=== PATIENT | female | born 1990 | race Caucasian/White ===

== ENCOUNTER 2016-07-12 04:21 | Emergency (ER) | payer MEDICAID ==
[2016-07-12] MEDS ORDERED: LORAZEPAM INJ 2 MG/1 ML VIAL IM ONE ×2 (04:24)
[2016-07-12] MEDS ORDERED: LORAZEPAM INJ 2 MG/1 ML VIAL ONE (04:25)
[2016-07-12] MEDS ORDERED: HALOPERIDOL LACTATE INJ 5 MG/1 ML VIAL IM ONE (04:45)
[2016-07-12] MEDS ORDERED: HALOPERIDOL LACTATE INJ 5 MG/1 ML VIAL ONE (04:46)
[2016-07-12 05:21] LABS: HEMOGLOBIN 12.4 g/dL (12.0-15.5); HGB HCT DIFFERENCE -0.8; MEAN CORPUSCULAR HEMOGLOBIN 28.5 pg (27.0-33.4); MEAN CORPUSCULAR HGB CONC 32.6 g/dL (32.0-36.0); MEAN CORPUSCULAR VOLUME 87 fl (80-97); RED BLOOD COUNT 4.35 10^6/uL (3.72-5.28); RED CELL DISTRIBUTION WIDTH 15.4 % (11.5-14.0); WHITE BLOOD COUNT 19.4 10^3/uL (4.0-10.5)
[2016-07-12 05:33] LABS: ALANINE AMINOTRANSFERASE 41 U/L (9-52); ALBUMIN 4.8 g/dL (3.5-5.0); ALKALINE PHOSPHATASE 77 U/L (38-126); ANION GAP 17 (5-19); ASPARTATE AMINO TRANSFERASE 78 U/L (14-36); BLOOD UREA NITROGEN 12 mg/dL (7-20); CALCIUM 10.2 mg/dL (8.4-10.2); CARBON DIOXIDE 25 mmol/L (22-30); CHLORIDE 102 mmol/L (98-107); GLUCOSE 63 mg/dL (75-110); POTASSIUM 3.2 mmol/L (3.6-5.0); SODIUM 143.9 mmol/L (137-145); TOTAL PROTEIN 8.4 g/dL (6.3-8.2)
[2016-07-12 05:36] LABS: ALCOHOL < 10 mg/dL (NONE DETECTED)
--- NOTE | 2016-07-12 05:40 | ER Document Report ---
ED General <FESTUS FISCHER - Last Filed: 07/12/16 12:21> - General TRAVEL OUTSIDE OF THE [place] IN LAST 30 DAYS: No <CHUYITA CARBAJAL - Last Filed: 07/13/16 06:39> - General Stated Complaint: POSSIBLE OVERDOSE Notes: Patient is a 25-year-old female presents for complaint of overdose. Patient admits using lots of cocaine as well as meth. Patient really wanted him to a stranger's home. She was acting erratic was not controllable. They did call the police and the paramedics. Paramedics brought her here. She did receive 2 mg of Valium IM from the paramedics. She has known history of cocaine and amphetamine abuse. Patient currently denies any other complaints. Patient is actively picking everything on the bed as well as trying to eat her shirt. ( CHUYITA CARBAJAL) - Related Data Allergies/Adverse Reactions: No Known Allergies Allergy (Verified 06/18/15 13:02) Past Medical History - Social History Smoking Status: Current Some Day Smoker Frequency of alcohol use: unknown Drug Abuse: Cocaine, Methamphetamine Family History: Reviewed & Not Pertinent Psychiatric Medical History: Reports: Hx Anxiety, Hx Bipolar Disorder, Hx Personality Disorder - Immunizations Hx Diphtheria, Pertussis, Tetanus Vaccination: Yes <CHUYITA CARBAJAL - Last Filed: 07/13/16 06:39> Review of Systems - Review of Systems -: Yes ROS unobtainable due to patient's medical condition - Review systems is very limited because patient is extremely intoxicated. <CHUYITA CARBAJAL - Last Filed: 07/13/16 06:39> Physical Exam <FESTUS FISCHER - Last Filed: 07/12/16 12:21> <CHUYITA CARBAJAL - Last Filed: 07/13/16 06:39> - Vital signs Vitals: Pulse Ox 93 07/12/16 04:22 (FESTUS FISCHER) - Notes Notes: General Appearance: Well nourished, alert, uncooperative, no acute distress, no obvious discomfort. Patient is very erratic and yelling at people. Patient is biting on her shirts and is very paranoid and accusing people of trying to "plant stuff on me." Vitals: reviewed, See vital signs table. Head: no swelling or tenderness to the head Eyes: PERRL, EOMI, Conjuctiva clear Mouth: No decreasd moisture Neck: Supple, no neck tenderness, No thyromegaly Lungs: No wheezing, No rales, No rhonci, No accessory muscle use, good air exchange bilaterally. Heart: Tachycardic rate, Regular rythm, No murmur, no rub Abdomen: Normal BS, soft, No rigidity, No abdominal tenderness, No guarding, no rebound, no abdominal masses, no organomegaly Extremities: strength 5/5 in all extremities, good pulses in all extremities, no swelling or tenderness in the extremities, no edema. Skin: warm, dry, appropriate color, no rash Neuro: speech clear, oriented x 2, hyper and paranoid affect. Patient will not stay still. She moves all extremities on her own. No focal neurologic deficits on exam. (CHUYITA CARBAJAL) Course - Laboratory Result Diagrams: 07/12/16 05:02 07/12/16 05:02 <FESTUS FISCHER - Last Filed: 07/12/16 12:21> - Laboratory Result Diagrams: 07/12/16 05:02 07/12/16 05:02 <CHUYITA CARBAJAL - Last Filed: 07/13/16 06:39> - Re-evaluation Re-evalutation: 07/12/16 12:21 pt is awake, alert, with family . (FESTUS FISCHER) - Vital Signs Vital signs: Temp Pulse Resp BP Pulse Ox 98.2 F 22 H 123/77 100 07/12/16 12:32 07/12/16 12:01 07/12/16 12:01 07/12/16 12:01 (FESTUS FISCHER) - Laboratory Laboratory results interpreted by me: 07/12/16 07/12/16 05:02 05:02 WBC 19.4 H RDW 15.4 H Seg Neuts % (Manual) 83 H Lymphocytes % (Manual) 6 L Abs Neuts (Manual) 16.1 H Abs Monocytes (Manual) 2.1 H Potassium 3.2 L Glucose 63 L AST 78 H Total Protein 8.4 H Salicylates < 1.0 L Acetaminophen < 10 L (FESTUS FISCHER) - Transfer of Care Notes: 01/24/17 06:59 Patient is now resting completely now that she has been sedated. Patient's presentation is very consistent with her previous presentations when she has overdosed on cocaine and methamphetamine. She does have leukocytosis I think this is the margination related to her overdose and agitation. She has no fevers. No signs of infection. Patient will be closely monitored until she is sober and will be discharged home. Her care is been checked out to the morning ER physician who will continue monitor the patient and reassess her for release when she is sober. I've included information for outpatient rehabilitation and detox resources for her to go home with. (CHUYITA CARBAJAL) Discharge <FESTUS FISCHER - Last Filed: 07/12/16 12:21> <CHUYITA CARBAJAL - Last Filed: 07/13/16 06:39> - Discharge Clinical Impression: Cocaine abuse, Methamphetamine abuse Condition: Fair Disposition: HOME, SELF-CARE Additional Instructions: Please stop doing illegal drugs. Continued use of drugs such as cocaine and methamphetamine and other street drugs will eventually lead to if you continue to use them. Please follow-up with [facility] resources for further help with outpatient detox. I have included the information in your discharge paperwork. Please return to ER immediately if you have any further concerns.
[2016-07-12 05:55] LABS: BASOPHILS % (MANUAL) 0 % (0-2); EOSINOPHILS % (MANUAL) 0 % (0-6); LYMPHOCYTES % (MANUAL) 6 % (13-45); TOTAL CELLS COUNTED 100
[2016-07-12 05:56] LABS: ANISOCYTOSIS SLIGHT; TEAR DROP CELLS SLIGHT
--- NOTE | 2016-07-12 11:47 | EKG REPORT ---
SEVERITY:- BORDERLINE ECG - SINUS RHYTHM BORDERLINE RIGHT AXIS DEVIATION BORDERLINE PROLONGED QT INTERVAL : Confirmed by: Tayler Cardoso MD 12-Jul-2016 11:46:30
[2016-07-12 12:33] VITALS: BP 123/77
== END 2016-07-12 12:33 | disposition home or self-care (01) ==
LOC: ER 04:21
DX: T40.5X1A Poisoning by cocaine, accidental (unintentional), initial encounter (principal); T43.621A Poisoning by amphetamines, accidental (unintentional), initial encounter; F06.2 Psychotic disorder with delusions due to known physiological condition; D72.829 Elevated white blood cell count, unspecified; F17.200 Nicotine dependence, unspecified, uncomplicated
CPT/HCPCS: 93005; 99285; 96372; 36415; 80307 ×3; 84703; 85025; 80053; 93010; J1630; J2060

== ENCOUNTER 2017-01-23 00:48 | Emergency (ER) | payer MEDICAID ==
[2017-01-23] MEDS ORDERED: NORMAL SALINE 1000 ML 1,000 ML IV ONE ×2 (01:08→09:45)
--- NOTE | 2017-01-23 01:19 | ER Document Report ---
ED General - General Stated Complaint: IVC/WITH PAPERS Time Seen by Provider: 01/23/17 01:02 Notes: Patient is a 26-year-old female presents with complaint of hallucinations. She is brought in by the police on involuntary commitment paperwork because of hallucinations. Patient was seen by me in June for the same thing at that time she had multiple different drugs in her system which were causing hallucinations. Patient herself will not talk to me. She stares at the ceiling and ask as if she is talking to someone who is not in the room. She continues to act for Officer Chalo. TRAVEL OUTSIDE OF THE [place] IN LAST 30 DAYS: No - Related Data Allergies/Adverse Reactions: No Known Allergies Allergy (Verified 06/18/15 13:02) Past Medical History - Social History Smoking Status: Unknown if Ever Smoked Frequency of alcohol use: unknown Drug Abuse: Other - unknown Family History: Reviewed & Not Pertinent Psychiatric Medical History: Reports: Hx Anxiety, Hx Bipolar Disorder, Hx Personality Disorder - Immunizations Hx Diphtheria, Pertussis, Tetanus Vaccination: Yes Review of Systems - Review of Systems -: Yes ROS unobtainable due to patient's medical condition - Patient is having hallucinations and will not answer questions. Physical Exam - Notes Notes: General Appearance: Well nourished, alert, patient is looking around the room and looking at the ceiling and talking to people who were not in the room., no acute distress, no obvious discomfort. Vitals: reviewed, See vital signs table. Head: no swelling or tenderness to the head Eyes: PERRL, EOMI, Conjuctiva clear Mouth: No decreasd moisture Throat: No tonsillar inflammation, No airway obstruction, No lymphadenopathy Lungs: No wheezing, No rales, No rhonci, No accessory muscle use, good air exchange bilaterally. Heart: Normal rate, Regular rythm, No murmur, no rub Abdomen: Normal BS, soft, No rigidity, No abdominal tenderness, No guarding, no rebound, no abdominal masses, no organomegaly Extremities: strength 5/5 in all extremities, good pulses in all extremities, no swelling or tenderness in the extremities, no edema. Skin: warm, dry, appropriate color, no rash Neuro: Patient is awake and alert. She is looking around the room will not answer my questions. She is actively hallucinating. Her cranial nerves appear to be grossly intact. She is moving all 4 extremities against resistance of the restraints. Course - Re-evaluation Re-evalutation: 01/23/17 05:18 At this time is not exactly clear the patient's hallucinations are related to drug abuse or just related to a psychiatric illness. Patient continued to hallucinate and started become more agitated and was yelling at staff and cussing. Patient will not come down. End up giving the patient sedated with medications due to the fact that she was pulling hard against the restraints that was afraid that she would eventually hurt herself she continued to rock and threshold against restraints. Once patient's urinalysis is clear she will be medically stable for psychiatric evaluation. Dictation of this chart was performed using voice recognition software; therefore, there may be some unintended grammatical errors. - Laboratory Result Diagrams: 01/23/17 01:35 01/23/17 01:35 Laboratory results interpreted by me: 01/23/17 01/23/17 01:35 01:35 Seg Neutrophils % 78.3 H Lymphocytes % 11.2 L AST 88 H ALT 220 H Total Protein 8.9 H Salicylates < 1.0 L Acetaminophen < 10 L - EKG Interpretation by Me Additional EKG results interpreted by me: 01/23/17 02:16 EKG is reviewed and interpreted by me. EKG shows normal sinus rhythm with rate [address] segment elevation or depression. No ischemic T-wave inversions. [place] interval, QRS duration, QTc intervals are within normal range. Old EKG for comparison is from July 12, 2016.
[2017-01-23 01:46] LABS: ABSOLUTE LYMPHOCYTES (AUTO) 0.9 10^3/uL (0.5-4.7); ABSOLUTE MONOCYTES (AUTO) 0.8 10^3/uL (0.1-1.4); ABSOLUTE NEUT (AUTO) 6.4 10^3/uL (1.7-8.2); BASOPHILS % (AUTO) 0.2 % (0-2); EOSINOPHILS % (AUTO) 0.2 % (0-6); HEMATOCRIT 42.5 % (36.0-47.0); HEMOGLOBIN 14.5 g/dL (12.0-15.5); LYMPHOCYTES % (AUTO) 11.2 % (13-45); MEAN CORPUSCULAR HEMOGLOBIN 31.4 pg (27.0-33.4); MEAN CORPUSCULAR HGB CONC 34.2 g/dL (32.0-36.0); MEAN CORPUSCULAR VOLUME 92 fl (80-97); MONOCYTES % (AUTO) 10.1 % (3-13); RED BLOOD COUNT 4.62 10^6/uL (3.72-5.28); RED CELL DISTRIBUTION WIDTH 13.5 % (11.5-14.0); SEGMENTED NEUTROPHILS % (AUTO) 78.3 % (42-78); WHITE BLOOD COUNT 8.2 10^3/uL (4.0-10.5)
[2017-01-23 02:17] LABS: ALANINE AMINOTRANSFERASE 220 U/L (9-52); ALBUMIN 4.9 g/dL (3.5-5.0); ALKALINE PHOSPHATASE 88 U/L (38-126); ANION GAP 13 (5-19); ASPARTATE AMINO TRANSFERASE 88 U/L (14-36); BILIRUBIN,DIRECT 0.4 mg/dL (0.0-0.4); BILIRUBIN,TOTAL 0.9 mg/dL (0.2-1.3); BLOOD UREA NITROGEN 11 mg/dL (7-20); CALCIUM 10.2 mg/dL (8.4-10.2); CARBON DIOXIDE 26 mmol/L (22-30); CHLORIDE 103 mmol/L (98-107); CREATININE RESULT 0.98 mg/dL (0.52-1.25); GLUCOSE 110 mg/dL (75-110); POTASSIUM 3.7 mmol/L (3.6-5.0); SODIUM 142.2 mmol/L (137-145); TOTAL PROTEIN 8.9 g/dL (6.3-8.2)
[2017-01-23 02:19] LABS: ALCOHOL < 10 mg/dL (NONE DETECTED)
[2017-01-23] MEDS ORDERED: LORAZEPAM INJ 2 MG/1 ML VIAL IV ONE (03:45)
[2017-01-23] MEDS ORDERED: DIPHENHYDRAMINE HCL 50 MG/ML VIAL IV ONE (03:46)
[2017-01-23] MEDS ORDERED: HALOPERIDOL LACTATE INJ 5 MG/1 ML VIAL IM ONE (04:02)
--- NOTE | 2017-01-23 04:45 | EKG REPORT ---
SEVERITY:- OTHERWISE NORMAL ECG - SINUS RHYTHM BORDERLINE RIGHT AXIS DEVIATION : Confirmed by: Bruce Thompson MD 23-Jan-2017 04:22:26
[2017-01-23 06:33] LABS: APPEARANCE,URINE SLIGHTLY-CLOUDY; BILIRUBIN,URINE NEGATIVE (NEGATIVE); GLUCOSE, URINE NEGATIVE (NEGATIVE); KETONES,URINE TRACE mg/dL (NEGATIVE); LEUKOCYTE ESTERASE,URINE NEGATIVE (NEGATIVE); NITRITE,URINE NEGATIVE (NEGATIVE); PROTEIN,URINE 30 mg/dL (NEGATIVE); URINE SPECIFIC GRAVITY 1.012
[2017-01-23 06:45] LABS: URINE BARBITURATES SCREEN NEGATIVE; URINE METHADONE SCREEN NEGATIVE; URINE OPIATES LOW NEGATIVE; URINE PHENCYCLIDINE SCREEN NEGATIVE
[2017-01-23] MEDS ORDERED: BENZTROPINE MESYLATE INJ 2 MG/2 ML AMPULE IM ONE (14:54)
[2017-01-23] MEDS ORDERED: ZIPRASIDONE MESYLATE INJ/PF 20 MG SDV IM ONE (14:54)
--- NOTE | 2017-01-23 15:02 | ER Document Report ---
ED Psych Disorder / Suicide - General Mode of Arrival: Ambulatory Information source: Patient, Law Enforcement TRAVEL OUTSIDE OF THE [place] IN LAST 30 DAYS: No - HPI Patient complains to provider of: Agitated, Bizarre behavior, Hallucinating Onset: Just prior to arrival Onset was: Sudden Suicide Risk Factors: Lack of social support, Substance abuse - long history of substance abuse Normal mood: Yes Associated symptoms: Manic, Visual hallucinations - pt presents as though she contineus to respond to internal stimuli, staring at different places on the wall, talking with people are not in the room, etc (@ 1441) Similar symptoms previously: Yes Recently seen / treated by doctor: No - unknown <KENYA TOLEDO - Last Filed: 01/24/17 09:23> <DAJA GUO - Last Filed: 01/24/17 09:39> - General Chief Complaint: Psych Problem Stated Complaint: IVC/WITH PAPERS Time Seen by Provider: 01/23/17 01:02 - HPI Notes: Patient is a 26 year old female who presents via [facility] under IVC petition due to psychotic behaviors. Patient has a long history of substance abuse, and is known to this department for previous episodes of similar etiology. Patient is known to have periods of sobriety and serves a functioning member of the community by parenting her child, working, etc when engaging in treatment with Suboxone. Patient was noted to be hallucinating upon arrival as well as agitated and was administered IM medications to assist in safety and remaining calm. Patient is sleeping at this time and will be evaluated at a later time. @ 1441 Patient is sitting up in bed, eating her lunch tray. Patient is observed looking at the wall, smiling and laughing and talking when no one is in the room. Patient attempts to engage in conversation, but is unable to track topic and or demonstrate linear thought processing. Patient does smile and laugh, but then because stoic when asked about her baby and mother. Patient states she is going outside to smoke a cigarette, and when prompted to remain in her room and advised that she is in the ER, she states, "what? why am I in the ER." Patient is drowsy and oriented to name. Patient's mood is manic/labile with congruent affects. Patient denies suicidal/homicidal ideations, intent, plan, or means. Patient denies A/V H; however, presents as though she is responding to internal stimuli. Thought processes were disorganized. Conversational speech was slurred. Intellectual abilities were estimated to be under the influence. Attention and focus were poor. Insight, judgment, and impulse control were poor. 1. 304.20 (F14.20) Cocaine Use Disorder, Moderate, history of 2. 304.20 (F15.20) Methamphetamine Use Disorder, Moderate, history of 3. 304.00 (F11.20) Heroin Use Disorder, Moderate, history of 4. Rule Out Bipolar Disorder Patient is recommended to remain under IVC for further observation and disposition. Patient will be reevaluated, likely in the morning. Patient does not present in a manner in which she could make decisions regarding her immediate safety. Her presenting symptoms are considered to be substance induced. I consulted with Dr. Goodman in regards to the care and management of this patient. ED MD is in agreement with disposition and recommendations. 01/24/2017 Conducted check in with patient who is a 26 year old female under IVC for bizarre and psychosis related behaviors. Patient presented likely under the influence of various drugs, to include cocaine. Patient today is A&O, she is able to communicate and track topic. Patient remains guarded about her life, and what precipitated her episode. Patient maintains she had a panic attack and denies abusing drugs. Patient encouraged to pursue drug treatment, possibly Suboxone, which has worked well for her in the past. Patient states she is not interested in this, and states she just wants to visit with her son. Patient states her son is with his father's side of the family. Patient denies suicidal /homicidal ideations. Patient was encouraged to contact a responsible individual to pick her up and discuss treatment. 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 Patient is A&O. Mood is euthymic with normal affect. Patient denies suicidal/ homicidal ideations, intent, plan, or means. Patient denies A/V H; delusions not noted. Thought processes were guarded. Conversational speech was WNL. Intellectual abilities were estimated within average range. Attention and focus were fair. Insight, judgment, and impulse control were poor. 1. 304.20 (F14.20) Cocaine Use Disorder, Moderate, history of 2. 304.20 (F15.20) Methamphetamine Use Disorder, Moderate, history of 3. 304.00 (F11.20) Heroin Use Disorder, Moderate, history of 4. Rule Out Bipolar Disorder Patient is psychiatrically cleared for discharge. Patient is recommended for rescind IVC and discharge to a responsible adult to assist her home. Patient is encouraged to follow up with a provider of her choice to pursue outpatient treatment. Patient no longer meets criteria for IVC per the [id number] as she denies SI/HI, and no longer appears to be responding to internal stimuli. I consulted with Dr. Goodman in regards to the care and management of this patient. (KENYA TOLEDO) - Related Data Allergies/Adverse Reactions: No Known Allergies Allergy (Verified 06/18/15 13:02) Home Medications: Current Home Medications No Home Medications 01/23/17 [History] Past Medical History - General Information source: Patient, Friend - Social History Smoking Status: Unknown if Ever Smoked Cigarette use (# per day): Yes Chew tobacco use (# tins/day): No Smoking Education Provided: Yes Frequency of alcohol use: unknown Drug Abuse: Other - unknown Family History: Reviewed & Not Pertinent Patient has suicidal ideation: No Patient has homicidal ideation: No Psychiatric Medical History: Reports: Hx Anxiety, Hx Bipolar Disorder, Hx Personality Disorder - Immunizations Hx Diphtheria, Pertussis, Tetanus Vaccination: Yes <KENYA TOLEDO - Last Filed: 01/24/17 09:23> Course - Laboratory Result Diagrams: 01/23/17 01:35 01/23/17 01:35 <KENYA TOLEDO - Last Filed: 01/24/17 09:23> - Laboratory Result Diagrams: 01/23/17 01:35 01/23/17 01:35 <DAJA GUO - Last Filed: 01/24/17 09:39> - Vital Signs Vital signs: Temp Pulse Resp BP Pulse Ox 97.8 F 59 L 12 103/53 L 100 01/24/17 03:54 01/24/17 03:54 01/24/17 03:54 01/24/17 03:54 01/24/17 03:54 - Laboratory Laboratory results interpreted by me: 01/23/17 01/23/17 01/23/17 01:35 01:35 06:15 Seg Neutrophils % 78.3 H Lymphocytes % 11.2 L AST 88 H ALT 220 H Total Protein 8.9 H Urine Protein 30 H Urine Ketones TRACE H Urine Urobilinogen 4.0 H Salicylates < 1.0 L Acetaminophen < 10 L Discharge <KENYA TOLEDO - Last Filed: 01/24/17 09:23> <DAJA GUO Marko - Last Filed: 01/24/17 09:39> - Discharge Clinical Impression: Substance abuse Condition: Stable Disposition: HOME, SELF-CARE Additional Instructions: Cocaine Abuse Cocaine causes many dangerous medical problems. Problems can occur even with "usual" amounts. Cocaine affects judgement, creating a sense of invulnerability. Cocaine users often make bad decisions that seem "great" at the time. Most cocaine users eventually will be hurt by bad job performance, damaged personal relations, crime, and unsafe sexual practices. Toxic effects of cocaine can include seizures, hallucinations, delusions, high blood pressure, heart damage, or sudden . There's always the risk of a "bad batch." But heart attacks, brain hemorrhages, or cardiac arrest can occur unpredictably even with "normal" use. Injection of cocaine is risky for abscesses, endocarditis (heart infection) , pneumonia, and AIDS. Withdrawal from cocaine often causes anxiety and drug cravings. Some users become paranoid and psychotic. Many treatment programs are available, but you must make the decision to quit. Medication can be prescribed to control the symptoms of cocaine toxicity (beta blockers or benzodiazepines). Withdrawal symptoms may require tranquilizers. Please pursue substance abuse assessment and treatment. Please refrain from drug use. Please return if your symptoms worsen. Referrals: [facility] [Provider Group] - Follow up in 3-5 days
[2017-01-24 09:40] VITALS: BP 110/57
== END 2017-01-24 09:44 | disposition home or self-care (01) ==
LOC: ER 00:48
DX: F19.10 Other psychoactive substance abuse, uncomplicated (principal); F14.20 Cocaine dependence, uncomplicated; F15.20 Other stimulant dependence, uncomplicated; F11.20 Opioid dependence, uncomplicated
CPT/HCPCS: 93005; 99285; 96372; 96361; 96374; 96375; 36415; 80307 ×4; 84703; 85025; 80053; 81001; 93010; J0515; J1200; J1630; J2060; J3486; J7030

== ENCOUNTER 2017-02-06 22:49 | Emergency (ER) | payer MEDICAID ==
[2017-02-06 23:26] LABS: ABSOLUTE EOSINOPHILS # (AUTO) 0.2 10^3/uL (0.0-0.6); ABSOLUTE LYMPHOCYTES (AUTO) 1.6 10^3/uL (0.5-4.7); ABSOLUTE MONOCYTES (AUTO) 0.8 10^3/uL (0.1-1.4); ABSOLUTE NEUT (AUTO) 4.4 10^3/uL (1.7-8.2); BASOPHILS % (AUTO) 0.4 % (0-2); EOSINOPHILS % (AUTO) 2.7 % (0-6); HEMATOCRIT 37.6 % (36.0-47.0); HGB HCT DIFFERENCE 1.4; LYMPHOCYTES % (AUTO) 22.7 % (13-45); MEAN CORPUSCULAR HGB CONC 34.6 g/dL (32.0-36.0); MEAN CORPUSCULAR VOLUME 92 fl (80-97); MONOCYTES % (AUTO) 10.9 % (3-13); RED BLOOD COUNT 4.07 10^6/uL (3.72-5.28); RED CELL DISTRIBUTION WIDTH 13.5 % (11.5-14.0); SEGMENTED NEUTROPHILS % (AUTO) 63.3 % (42-78)
[2017-02-06 23:40] LABS: ALANINE AMINOTRANSFERASE 168 U/L (9-52); ALBUMIN 4.2 g/dL (3.5-5.0); ALCOHOL < 10 mg/dL (NONE DETECTED); ALKALINE PHOSPHATASE 82 U/L (38-126); ANION GAP 8 (5-19); ASPARTATE AMINO TRANSFERASE 74 U/L (14-36); BILIRUBIN,DIRECT 0.4 mg/dL (0.0-0.4); BILIRUBIN,TOTAL 0.8 mg/dL (0.2-1.3); BLOOD UREA NITROGEN 9 mg/dL (7-20); CARBON DIOXIDE 29 mmol/L (22-30); CHLORIDE 107 mmol/L (98-107); CREATININE RESULT 0.83 mg/dL (0.52-1.25); GLUCOSE 92 mg/dL (75-110); POTASSIUM 3.7 mmol/L (3.6-5.0); SODIUM 143.9 mmol/L (137-145); TOTAL PROTEIN 7.5 g/dL (6.3-8.2)
--- NOTE | 2017-02-07 00:06 | ER Document Report ---
ED General - General Chief Complaint: Psych Problem Stated Complaint: PSYCH EVALUATION Time Seen by Provider: 02/06/17 22:56 Notes: Patient is a 26-year-old female presents with complaints of acting abnormal. Patient will not talk to me but mother is at bedside. Mother says that the patient has a long history of drug abuse and alcohol abuse. She also thinks she has some psychiatric illness. Patient was in [facility] up until 2 weeks ago. Since then she has been living with the mother. Mother says she is home from work she finds her daughter acting abnormally. Her daughter will leave the house and be brought back from by the police at times acting abnormally. Mother says she knows that her daughter drinks a lot of alcohol and also smokes most likely continues to do drugs. Tonight her daughter was very twitchy and would not stay still. She would not answer questions appropriately. She is unsure exactly if this is psychiatric or drugs or combination of both. I did take care of the patient in June and at that time she had overdosed on cocaine and methamphetamine. TRAVEL OUTSIDE OF THE [place] IN LAST 30 DAYS: No - Related Data Allergies/Adverse Reactions: No Known Allergies Allergy (Verified 06/18/15 13:02) Past Medical History - Social History Smoking Status: Current Every Day Smoker Frequency of alcohol use: Occasional Drug Abuse: Cocaine, Methamphetamine Family History: Reviewed & Not Pertinent Psychiatric Medical History: Reports: Hx Anxiety, Hx Bipolar Disorder, Hx Personality Disorder - Immunizations Hx Diphtheria, Pertussis, Tetanus Vaccination: Yes Review of Systems - Review of Systems -: Yes ROS unobtainable due to patient's medical condition - She is will not talk to me. Physical Exam - Vital signs Vitals: Resp Pulse Ox 19 100 02/06/17 22:59 02/06/17 22:59 - Notes Notes: General Appearance: Patient looks anxious. She will follow commands but will not verbally say anything. Vitals: reviewed, See vital signs table. Head: no swelling or tenderness to the head Eyes: PERRL, EOMI, Conjuctiva clear Mouth: No decreasd moisture Throat: No tonsillar inflammation, No airway obstruction, No lymphadenopathy Neck: Supple, no neck tenderness Lungs: No wheezing, No rales, No rhonci, No accessory muscle use, good air exchange bilaterally. Heart: Normal rate, Regular rythm, No murmur, no rub Abdomen: Normal BS, soft, No rigidity, No abdominal tenderness, No guarding, no rebound, no abdominal masses, no organomegaly Extremities: strength 5/5 in all extremities, good pulses in all extremities, no swelling or tenderness in the extremities, no edema. Skin: warm, dry, appropriate color, no rash Neuro: Will not answer questions. She does move all extremities on her own. Distal sensation appears to be intact. Cranial nerves II through XII are grossly intact. Course - Re-evaluation Re-evalutation: 02/07/17 03:08 The nurse just informed me that the patient's IV infiltrated and therefore should remove it. I did reevaluate the patient's arm. She does have swelling into the upper arm. Her compartments are soft. She does not have any evidence of impending compartment syndrome at this time. Patient continues to not talk to me. She continues to not answer any of my questions. 02/07/17 05:58 Patient again has urinated in the bed. We have been unable to obtain a urinalysis or urine drug screen at this time. I do think some of her symptoms are drug abuse related however I do think there is some underlying psychosis. After talking to the mother seems the patient has been having issues for a long time and has been acting weird even when it appears that she is not on drugs. Even now she should be sobering up significantly but she still has almost a psychotic effect. I will have psychiatrist evaluate the patient this morning. Patient is medically stable for psychiatric evaluation. - Vital Signs Vital signs: Temp Pulse Resp BP Pulse Ox 98.0 F 23 H 138/78 H 100 02/06/17 23:19 02/07/17 03:45 02/07/17 03:45 02/07/17 03:45 - Laboratory Result Diagrams: 02/06/17 23:15 02/06/17 23:15 Laboratory results interpreted by me: 02/06/17 23:15 AST 74 H ALT 168 H Salicylates < 1.0 L Acetaminophen < 10 L - EKG Interpretation by Me Additional EKG results interpreted by me: 02/07/17 00:01 EKG is reviewed and interpreted by me. EKG shows normal normal sinus rhythm with rate of [address] segment elevation or depression. No ischemic T- wave inversions. [place] interval, QRS duration, QTc intervals are within normal range. Old EKG for comparison is from January 23, 2017. Discharge - Discharge Clinical Impression: Drug abuse Psychosis Qualifiers: Psychosis type: unspecified psychosis type Qualified Code(s): F29 - Unspecified psychosis not due to a substance or known physiological condition Condition: Stable Disposition: PSYCH HOSP/UNIT
[2017-02-07] MEDS: NORMAL SALINE 1000 ML 1,000 ML IV PRN ×2 (02:00→02:01)
[2017-02-07] MEDS ORDERED: LORAZEPAM 0.5 MG TABLET PO ONE (05:04)
--- NOTE | 2017-02-07 09:12 | ER Document Report ---
Doctor's Note Notes: 02/07/17 09:12 Patient is currently sitting comfortably in bed. Patient denies any current complaints or problems. She is awaiting placement.
--- NOTE | 2017-02-07 09:30 | EKG REPORT ---
SEVERITY:- BORDERLINE ECG - SINUS RHYTHM PROBABLE LEFT ATRIAL ABNORMALITY BORDERLINE RIGHT AXIS DEVIATION : Confirmed by: Sweetie Brewer 07-Feb-2017 09:29:28
[2017-02-07 10:15] LABS: AMORPHOUS SEDIMENT,URINE TRACE /HPF; APPEARANCE,URINE CLOUDY; BILIRUBIN,URINE NEGATIVE (NEGATIVE); GLUCOSE, URINE NEGATIVE (NEGATIVE); KETONES,URINE NEGATIVE (NEGATIVE); LEUKOCYTE ESTERASE,URINE SMALL (NEGATIVE); NITRITE,URINE NEGATIVE (NEGATIVE); PROTEIN,URINE NEGATIVE (NEGATIVE); URINE SPECIFIC GRAVITY 1.018
[2017-02-07] MEDS ORDERED: ZIPRASIDONE MESYLATE INJ/PF 20 MG SDV IM ONE (10:18)
--- NOTE | 2017-02-07 10:20 | ER Document Report ---
ED Psych Disorder / Suicide - General Information source: Patient, [facility] Records Cannot obtain history due to: Intoxicated - likely under the influence, Altered mental status TRAVEL OUTSIDE OF THE [place] IN LAST 30 DAYS: No - HPI Patient complains to provider of: Bizarre behavior, Hallucinating, Other - substance abuse Onset: Other Onset was: Cannot confirm Suicide Risk Factors: Frightened friends/family, Lack of social support, Loss of rational thought, Substance abuse Situational problems related to: Other Normal mood: No Associated symptoms: Auditory hallucinations, Labile, Manic, Paranoid, Uncooperative, Visual hallucinations Similar symptoms previously: Yes - long history of substance abuse Recently seen / treated by doctor: Yes - 01/24 here in the ED <KENYA TOLEDO - Last Filed: 02/07/17 17:33> <DAJA GUO - Last Filed: 02/07/17 17:41> - General Chief Complaint: Psych Problem Stated Complaint: PSYCH EVALUATION Time Seen by Provider: 02/06/17 22:56 - HPI Notes: Patient is a 26 year old female who presents with possible A/V H. Patient at this time is observed talking to no one in the room, moving around restlessly, and at times staring. Patient is known to this clinician and Department for prior episodes of similar etiology. Patient historically has abused drugs; however, in the past has achieved sobriety with the assistance of suboxone. Patient today is unable to engage in conversation and remain on topic. Will attempt at a later time. Labs pending at this time. @1700 conducted check in with patient who is now alert and oriented x4. Patient 's mother is bedside and reports she is agreeable to take the patient home, and follow up tomorrow morning at [facility] for Suboxone. Patient acknowledges she has these episodes when she abuses drugs. Patient denies suicidal/homicidal ideations, intent, plan, or means. Mother states she would like the patient to return to [facility] or another provider for Suboxone treatment. Mother states the patient functions well in the community and can parent and maintain employment. Mother states the patient will be staying with her until further notice. Patient is A&O. Mood is now euthymic with normal affect. Patient denies suicidal/homicidal ideations, intent, plan, or means. Patient denies A/V H and at this time is not presenting as though she is experiencing internal stimuli. Thought processes this evening are organized. Conversational speech is now WNL for prosody. Intellectual abilities were estimated within average range. Attention and focus were fair. Insight, judgment, and impulse control were poor. 1. 304.20 (F14.20) Cocaine Use Disorder, Moderate, history of 2. 304.20 (F15.20) Methamphetamine Use Disorder, Moderate, history of 3. 304.00 (F11.20) Heroin Use Disorder, Moderate, history of 4. Rule Out Bipolar Disorder Patient is psychiatrically cleared for discharge. Patient is recommended for rescind IVC and discharge to her mother to follow up with [facility]. Patient reports she is ready to stop abusing drugs and resume Suboxone treatment. Mother is agreeable with plan of care and reports no concerns at this time. I consulted with Dr. Goodman in regards to the care and management of this patient. (KENYA TOLEDO) - Related Data Allergies/Adverse Reactions: No Known Allergies Allergy (Verified 06/18/15 13:02) Past Medical History - General Information source: Patient, Parent, Relative - mother, [facility] Records Cannot obtain history due to: Intoxicated, Altered mental status - upon arrival - Social History Smoking Status: Current Every Day Smoker Cigarette use (# per day): Yes Chew tobacco use (# tins/day): No Smoking Education Provided: Yes Frequency of alcohol use: Occasional Drug Abuse: Cocaine, Methamphetamine Family History: Reviewed & Not Pertinent Patient has suicidal ideation: No Patient has homicidal ideation: No Psychiatric Medical History: Reports: Hx Anxiety, Hx Bipolar Disorder, Hx Personality Disorder - Immunizations Hx Diphtheria, Pertussis, Tetanus Vaccination: Yes <KENYA TOLEDO - Last Filed: 02/07/17 17:33> - Vital signs Vitals: Resp Pulse Ox 19 100 02/06/17 22:59 02/06/17 22:59 Course - Laboratory Result Diagrams: 02/06/17 23:15 02/06/17 23:15 <KENYA TOLEDO - Last Filed: 02/07/17 17:33> - Laboratory Result Diagrams: 02/06/17 23:15 02/06/17 23:15 <DAAJ GUO - Last Filed: 02/07/17 17:41> - Vital Signs Vital signs: Temp Pulse Resp BP Pulse Ox 97.3 F 88 18 116/81 99 02/07/17 11:12 02/07/17 11:12 02/07/17 11:12 02/07/17 11:12 02/07/17 11:12 - Laboratory Laboratory results interpreted by me: 02/06/17 02/07/17 23:15 09:40 AST 74 H ALT 168 H Urine Urobilinogen 4.0 H Ur Leukocyte Esterase SMALL H Salicylates < 1.0 L Acetaminophen < 10 L Discharge <KENYA TOLEDO - Last Filed: 02/07/17 17:33> <DAJA GUO - Last Filed: 02/07/17 17:41> - Discharge Clinical Impression: Drug abuse Psychosis Qualifiers: Psychosis type: unspecified psychosis type Qualified Code(s): F29 - Unspecified psychosis not due to a substance or known physiological condition Condition: Stable Disposition: HOME, SELF-CARE Additional Instructions: Cocaine Abuse Cocaine causes many dangerous medical problems. Problems can occur even with "usual" amounts. Cocaine affects judgement, creating a sense of invulnerability. Cocaine users often make bad decisions that seem "great" at the time. Most cocaine users eventually will be hurt by bad job performance, damaged personal relations, crime, and unsafe sexual practices. Toxic effects of cocaine can include seizures, hallucinations, delusions, high blood pressure, heart damage, or sudden . There's always the risk of a "bad batch." But heart attacks, brain hemorrhages, or cardiac arrest can occur unpredictably even with "normal" use. Injection of cocaine is risky for abscesses, endocarditis (heart infection) , pneumonia, and AIDS. Withdrawal from cocaine often causes anxiety and drug cravings. Some users become paranoid and psychotic. Many treatment programs are available, but you must make the decision to quit. Medication can be prescribed to control the symptoms of cocaine toxicity (beta blockers or benzodiazepines). Withdrawal symptoms may require tranquilizers Please stop abusing drugs. Please follow up with [facility] to pursue substance abuse treatment. Please return if your symptoms worsen. You have been provided a list of resources to assist you. Referrals: [facility] [Provider Group] - Follow up tomorrow (Walk in at [phone])
[2017-02-07 10:25] LABS: URINE BARBITURATES SCREEN NEGATIVE; URINE METHADONE SCREEN NEGATIVE; URINE OPIATES LOW NEGATIVE; URINE PHENCYCLIDINE SCREEN NEGATIVE
[2017-02-07 17:48] VITALS: BP 104/58
== END 2017-02-07 17:56 | disposition home or self-care (01) ==
LOC: ER 22:49
DX: F29 Unspecified psychosis not due to a substance or known physiological condition (principal); F14.20 Cocaine dependence, uncomplicated; F15.20 Other stimulant dependence, uncomplicated; F11.20 Opioid dependence, uncomplicated; F17.210 Nicotine dependence, cigarettes, uncomplicated
CPT/HCPCS: 93005; 99285; 96372; 96360; 36415; 80307 ×4; 84703; 85025; 80053; 81001; 93010; J3486; J7030

== ENCOUNTER 2017-04-11 15:01 | Emergency (ER) | payer MEDICAID, OTHER ==
[2017-04-11 15:26] LABS: ABSOLUTE LYMPHOCYTES (AUTO) 1.3 10^3/uL (0.5-4.7); ABSOLUTE NEUT (AUTO) 8.8 10^3/uL (1.7-8.2); BASOPHILS % (AUTO) 0.3 % (0-2); EOSINOPHILS % (AUTO) 0.2 % (0-6); HEMATOCRIT 39.6 % (36.0-47.0); HEMOGLOBIN 13.8 g/dL (12.0-15.5); HGB HCT DIFFERENCE 1.8; LYMPHOCYTES % (AUTO) 11.3 % (13-45); MEAN CORPUSCULAR HEMOGLOBIN 31.7 pg (27.0-33.4); MEAN CORPUSCULAR HGB CONC 34.7 g/dL (32.0-36.0); MEAN CORPUSCULAR VOLUME 91 fl (80-97); MONOCYTES % (AUTO) 8.7 % (3-13); RED BLOOD COUNT 4.34 10^6/uL (3.72-5.28); RED CELL DISTRIBUTION WIDTH 12.8 % (11.5-14.0); SEGMENTED NEUTROPHILS % (AUTO) 79.5 % (42-78); WHITE BLOOD COUNT 11.1 10^3/uL (4.0-10.5)
[2017-04-11] MEDS ORDERED: HALOPERIDOL LACTATE INJ 5 MG/1 ML VIAL IV ONE (15:29)
[2017-04-11 15:30] LABS: APPEARANCE,URINE SLIGHTLY-CLOUDY; BILIRUBIN,URINE NEGATIVE (NEGATIVE); GLUCOSE, URINE NEGATIVE (NEGATIVE); KETONES,URINE TRACE mg/dL (NEGATIVE); LEUKOCYTE ESTERASE,URINE NEGATIVE (NEGATIVE); NITRITE,URINE NEGATIVE (NEGATIVE); PROTEIN,URINE >=500 mg/dL (NEGATIVE); URINE SPECIFIC GRAVITY 1.031
[2017-04-11 15:49] LABS: URINE BARBITURATES SCREEN NEGATIVE; URINE METHADONE SCREEN NEGATIVE; URINE OPIATES LOW NEGATIVE; URINE PHENCYCLIDINE SCREEN NEGATIVE
[2017-04-11 15:51] LABS: ALANINE AMINOTRANSFERASE 148 U/L (9-52); ALBUMIN 4.7 g/dL (3.5-5.0); ALCOHOL < 10 mg/dL (NONE DETECTED); ALKALINE PHOSPHATASE 81 U/L (38-126); ANION GAP 15 (5-19); ASPARTATE AMINO TRANSFERASE 49 U/L (14-36); BILIRUBIN,DIRECT 0.5 mg/dL (0.0-0.4); BILIRUBIN,TOTAL 0.9 mg/dL (0.2-1.3); BLOOD UREA NITROGEN 10 mg/dL (7-20); CALCIUM 10.1 mg/dL (8.4-10.2); CARBON DIOXIDE 22 mmol/L (22-30); CHLORIDE 107 mmol/L (98-107); CREATININE RESULT 0.74 mg/dL (0.52-1.25); GLUCOSE 114 mg/dL (75-110); POTASSIUM 3.7 mmol/L (3.6-5.0); SODIUM 144.1 mmol/L (137-145); TOTAL PROTEIN 8.2 g/dL (6.3-8.2)
--- NOTE | 2017-04-11 16:15 | PSYCHOLOGICAL NOTE ---
Psych Note - Psych Note Psych Note: Patient is a 26-year-old female who presented via EMS likely acutely psychotic. Patient does have a long history of substance abuse and has numerous prior episodes of similar etiology. Most recently seen the end of January 2017. Patient today was observed attempting to elope from the emergency room yelling that aliens were chasing her. Patient was placed in soft restraints for her safety and stares off and also is observed talking when no one else is in the room. Did attempt to speak with the patient who recognized this clinician; however, would just stare as though she were responding to internal stimuli and then provide a one-word answer unrelated to the question. Since mother, Chasity Cantrell : States she saw the patient yesterday afternoon when she came over with her friend/baby dadrima mother states the patient appeared uncapped and disorganized mother states the patient later called her and asked her to come and pick her up which she did not do out of concern for patient's mental status and overall safety of herself. Mother reports the patient had been residing with the father of her baby and she is not sure if she has been using any drugs or alcohol. She states she suspects so. Mother states she has attempted to get the patient to follow-up with [facility] but she refuses to do so. Mother did provide contact information and requests she be notified of patient's needs and updates. Patient was alert but disoriented. Mood was labile and manic patient did not answer any questions regarding suicidal or homicidal ideations. Patient appears to be responding to internal stimuli. Thought processes were disorganized. Conversational speech was labile for rate, tone, and prosody. Intellectual abilities were estimated to be under the influence attention and focus are poor insight, judgment, impulse control are poor. 1. 304.20 (F14.20) Cocaine Use Disorder, Moderate, history of 2. 304.20 (F15.20) Methamphetamine Use Disorder, Moderate, history of 3. 304.00 (F11.20) Heroin Use Disorder, Moderate, history of 4. Rule Out Bipolar Disorder Patient is recommended IVC for further observation and disposition. Patient will be reevaluated, likely in the morning. Patient does not present in a manner in which she could make decisions regarding her immediate safety. Her presenting symptoms are considered to be substance induced. I consulted with Dr. Goodman in regards to the care and management of this patient. ED MD is in agreement with disposition and recommendations.
--- NOTE | 2017-04-11 16:16 | ER Document Report ---
ED General - General Chief Complaint: Psych Problem Stated Complaint: PSYCH EVAL Time Seen by Provider: 04/11/17 15:13 Mode of Arrival: Ambulatory Information source: Patient Notes: 26-year-old female history of substance abuse psych gastric issues presented acting strange. It is noted patient prior to my evaluation after being brought back to the room attempted to run from the room and was stopped by myself as she was in the ambulance bay. Patient noted to myself that aliens are taking her over and she is trying to skate them. Patient is obviously altered TRAVEL OUTSIDE OF THE [place] IN LAST 30 DAYS: No - HPI Onset: Just prior to arrival Onset/Duration: Sudden Quality of pain: No pain Severity: Moderate Pain Level: Denies Associated symptoms: Other Exacerbated by: Denies Relieved by: Denies Similar symptoms previously: Yes Recently seen / treated by doctor: Yes - Related Data Allergies/Adverse Reactions: No Known Allergies Allergy (Verified 04/11/17 15:47) Past Medical History - Social History Smoking Status: Current Every Day Smoker Cigarette use (# per day): Yes Chew tobacco use (# tins/day): No Smoking Education Provided: No Frequency of alcohol use: Heavy Drug Abuse: Other Family History: Reviewed & Not Pertinent Patient has suicidal ideation: No Patient has homicidal ideation: No Psychiatric Medical History: Reports: Hx Anxiety, Hx Attention Deficit Hyperactivity Disorder, Hx Bipolar Disorder, Hx Personality Disorder Surgical Hx: Negative - Immunizations Hx Diphtheria, Pertussis, Tetanus Vaccination: Yes Review of Systems - Review of Systems Notes: REVIEW OF SYSTEMS: CONSTITUTIONAL : Denies fever, chills, or sweats. Denies recent illness. EENT: Denies eye, ear, throat, or mouth pain or symptoms. Denies nasal or sinus congestion or discharge. Denies throat, tongue, or mouth swelling or difficulty swallowing. CARDIOVASCULAR: Denies chest pain. Denies palpitations or racing or irregular heart beat. Denies ankle edema. RESPIRATORY: Denies cough, cold, or chest congestion. Denies shortness of breath, difficulty breathing, or wheezing. GASTROINTESTINAL: Denies abdominal pain or distention. Denies nausea, vomiting , or diarrhea. Denies blood in vomitus, stools, or per rectum. Denies black, tarry stools. Denies constipation. GENITOURINARY: Denies difficulty urinating, painful urination, burning, frequency, blood in urine, or discharge. FEMALE GENITOURINARY: Denies vaginal bleeding, heavy or abnormal periods, irregular periods. Denies vaginal discharge or odor. MUSCULOSKELETAL: Denies back or neck pain or stiffness. Denies joint pain or swelling. SKIN: Denies rash, lesions or sores. HEMATOLOGIC : Denies easy bruising or bleeding. LYMPHATIC: Denies swollen, enlarged glands. NEUROLOGICAL: Denies confusion or altered mental status. Denies passing out or loss of consciousness. Denies dizziness or lightheadedness. Denies headache. Denies weakness or paralysis or loss of use of either side. Denies problems with gait or speech. Denies sensory loss, numbness, or tingling. Denies seizures. PSYCHIATRIC: Patient believes people are after her ALL OTHER SYSTEMS REVIEWED AND NEGATIVE. PHYSICAL EXAMINATION: GENERAL: Well-appearing, well-nourished and in no acute distress. HEAD: Atraumatic, normocephalic. EYES: Pupils equal round and reactive to light, extraocular movements intact, conjunctiva are normal. ENT: Nares patent, oropharynx clear without exudates. Moist mucous membranes. NECK: Normal range of motion, supple without lymphadenopathy LUNGS: Breath sounds clear to auscultation bilaterally and equal. No wheezes rales or rhonchi. HEART: Regular rate and rhythm without murmurs ABDOMEN: Soft, nontender, nondistended abdomen. No guarding, no rebound. No masses appreciated. Female : deferred Musculoskeletal: Normal range of motion, no pitting or edema. No cyanosis. NEUROLOGICAL: Cranial nerves grossly intact. Normal speech, normal gait. Normal sensory, motor exams PSYCH: Patient is obviously delusional SKIN: Burn to hand Dictation was performed using [employer] voice recognition software Physical Exam - Vital signs Vitals: Pulse Resp BP Pulse Ox 95 20 127/89 H 97 04/11/17 15:24 04/11/17 15:24 04/11/17 15:24 04/11/17 15:24 Course - Re-evaluation Re-evalutation: 04/11/17 16:15 Patient had to be physically restrained given that she attempted to run away from the emergency department and was quite delusional. She is at obvious risk of self-harm given that she is not oriented appropriately. - Vital Signs Vital signs: Temp Pulse Resp BP Pulse Ox 98 F 95 18 127/89 H 97 04/11/17 15:50 04/11/17 15:24 04/11/17 15:52 04/11/17 15:24 04/11/17 15:24 - Laboratory Result Diagrams: 04/11/17 15:17 04/11/17 15:17 Laboratory results interpreted by me: 04/11/17 04/11/17 04/11/17 15:17 15:17 15:17 WBC 11.1 H Seg Neutrophils % 79.5 H Lymphocytes % 11.3 L Absolute Neutrophils 8.8 H Glucose 114 H Direct Bilirubin 0.5 H AST 49 H ALT 148 H Urine Protein >=500 H Urine Ketones TRACE H Urine Urobilinogen 4.0 H Salicylates < 1.0 L Acetaminophen < 10 L - EKG Interpretation by Me EKG shows normal: Sinus rhythm, [place], Intervals, QRS Complexes Discharge - Discharge Clinical Impression: Delusions Condition: Stable Disposition: PSYCH HOSP/UNIT
--- NOTE | 2017-04-11 16:34 | EKG REPORT ---
SEVERITY:- OTHERWISE NORMAL ECG - SINUS RHYTHM BORDERLINE RIGHT AXIS DEVIATION : Confirmed by: Sweetie Brewer 11-Apr-2017 16:33:33
[2017-04-11] MEDS ORDERED: LORAZEPAM INJ 2 MG/1 ML VIAL IV ONE (19:34)
--- NOTE | 2017-04-12 09:56 | PSYCHOLOGICAL NOTE ---
Psych Note - Psych Note Psych Note: Clinician conducted check-in with patient; Patient disclosed that she is feeling "a lot better... More normal then I have felt in a long time." Patient stated, "Whatever gave me seems to have worked." Patient disclosed that she does go to [facility] but does not like it ; "not really into the group thing I would rather to change providers to have individual therapy. Patient disclosed that she has little in common with the other patients because she has a son now. Patient disclosed the son lives with paternal family. Patient is alert and orientated to person place time and circumstance. Mood is euthymic with congruent affect. Patient denies suicidal and homicidal ideation. Patient denies auditory visual hallucinations. Delusions are absent and behaviors congruent with an intact reality based presentation i.e. organized , linear, rational thinking. Eye contact was well-maintained. Intellectual abilities appear to be within average range. Conversational speech was within normal rate tone and prosody. Attention and concentration are good. Insight, judgment, impulse control appears to be fair possibly affected by substance abuse. 1. 304.20 (F14.20) Cocaine Use Disorder, Moderate, history of 2. 304.20 (F15.20) Methamphetamine Use Disorder, Moderate, history of 3. 304.00 (F11.20) Heroin Use Disorder, Moderate, history of 4. Rule Out Bipolar Disorder Impression\\plan: Patient is recommended for rescind of IVC and is considered psychiatrically clear. Patient no longer meets IVC criteria per [place] GS 122C. Patient denies suicidal homicidal ideation. Delusions are absent and behaviors congruent with intact reality based presentation i.e. organized, linear, rational thinking. Patient has history of substance abuse and toxicology screening support continued use. Patient is recommended to follow-up with outpatient services for substance abuse treatment. Patient came in altered mental status possibly as a result from being under the influence. Dr. Goodman was consulted and the care management of this patient; attending physician is in agreement with recommendations and disposition.
--- NOTE | 2017-04-12 10:36 | ER Document Report ---
Doctor's Note Notes: 04/12/17 10:34 Rounds: Chart reviewed and patient interviewed. Patient's being evaluated for altered mental status, to some extent secondary to substance abuse. Patient was brought in delusional attempted to escape. She was sedated with Ativan and Haldol. This morning, patient says she feels better than she has felt in a long time. She describes having difficulty sleeping. She suffers from anxiety , but is not on any current medications. Denies ever being diagnosed with bipolar disorder. Admits to abuse of cocaine and heroin in the past. Yesterday , she took a friend's Adderall, apparently resulting in a positive urine drug screen for amphetamines. Her drug screen for all other substances except for marijuana was negative. Patient denies any suicidal ideation. Labs are essentially unremarkable except for a white cell count of likely clinically insignificant 11,100 and very minimal elevation of LFTs. Vital signs are all normal. Patient appears to be medically stable for transfer or discharge. Krystyna Tariq MD
[2017-04-12 11:11] VITALS: BP 101/51
== END 2017-04-12 12:23 | disposition home or self-care (01) ==
LOC: ER 15:01
DX: F22 Delusional disorders (principal); F19.20 Other psychoactive substance dependence, uncomplicated; T23.009A Burn of unspecified degree of unspecified hand, unspecified site, initial encounter; X08.8XXA Exposure to other specified smoke, fire and flames, initial encounter; F17.210 Nicotine dependence, cigarettes, uncomplicated; Z78.1 Physical restraint status
CPT/HCPCS: 93005; 99285; 96374; 96375; 36415; 80307 ×4; 84703; 85025; 80053; 81001; 93010; J1630; J2060

== ENCOUNTER 2017-11-24 11:09 | Outpatient (CLI) | payer MEDICAID ==
--- NOTE | 2017-11-24 11:33 | Non Stress Test Report ---
Non Stress Test Datetime Report Generated by CPN: 11/24/2017 11:33 DEMOGRAPHIC EGA NST: 32.4 INDICATION Indication for Study: Ordered by Provider Indication for Study (NST) Other: Labor check MONITORING Monitor Explained: Monitor Explained; Test Explained; Patient Verbalized Understanding Time on Monitor: 06/18/2015 13:42 Time off Monitor: 06/18/2015 14:09 NST Duration: 27 NST INTERVENTIONS NST Interventions: IV Fluids Physician Notified NST: P. Cantrell CNM BABY A: [id number] BABY A Movement : Present; Absent Contraction Frequency : Irreg FHR Baseline : 115 Accelerations : 15X15 Decelerations : None Variability : Moderate 6-25bpm NST Review: Meets Criteria for Reactive NST NST Review and Verified By : B Baidy RN NST Results: Reactive NST REPORT Report Trigger: Send Report
[2017-11-24 12:23] LABS: APPEARANCE,URINE SLIGHTLY-CLOUDY; BILIRUBIN,URINE NEGATIVE (NEGATIVE); COLOR,URINE YELLOW; GLUCOSE, URINE NEGATIVE (NEGATIVE); KETONES,URINE NEGATIVE (NEGATIVE); LEUKOCYTE ESTERASE,URINE TRACE (NEGATIVE); NITRITE,URINE NEGATIVE (NEGATIVE); PROTEIN,URINE NEGATIVE (NEGATIVE); URINE SPECIFIC GRAVITY 1.005; UROBILINOGEN,URINE NEGATIVE mg/dL (<2.0)
[2017-11-24 12:37] LABS: AMNISURE (ROM) NEGATIVE (NEGATIVE)
[2017-11-24 12:46] LABS: URINE AMPHETAMINES SCREEN NEGATIVE; URINE BARBITURATES SCREEN NEGATIVE; URINE BENZODIAZEPINES SCREEN NEGATIVE; URINE COCAINE SCREEN NEGATIVE; URINE MARIJUANA (THC) SCREEN NEGATIVE; URINE METHADONE SCREEN NEGATIVE; URINE PHENCYCLIDINE SCREEN NEGATIVE
--- NOTE | 2017-11-24 14:52 | RADIOLOGY REPORT (SQ) ---
EXAM DESCRIPTION: U/S OB 14+ TA/1 GEST W/DOPPLER COMPLETED DATE/TIME: 11/24/2017 2:43 pm REASON FOR STUDY: cl, anatomy, fluid, presentation COMPARISON: None. TECHNIQUE: Static and Dynamic grayscale imaging performed of gravid uterus using transabdominal appr oac. Additional selected color Doppler and spectral images recorded. All stored on PACS. LIMITATIONS: Study is limited due to patient motion and lack of cooperation. FINDINGS: EGA: 32 weeks ALEXUS: 01/19/2018 EFW: 1762+/- 261 grams PERCENTILE: Not calculated ANTONI: 17.2 PLACENTA: Posterior grade 1 PRESENTATION: Cephalic. ANATOMY: HEART RATE: 144 beats per minute. FOUR CHAMBER HEART: Visualized. THREE VESSEL CORD: Yes. CORD INSERTION: Visualized. KIDNEYS AND BLADDER: Visualized. Appear normal. STOMACH: Visualized. Appears normal. SPINE: Normal as visualized. BRAIN AND LATERAL VENTRICLES: Visualized. Appear normal. OTHER: No other significant finding. MATERNAL ADNEXA: Maternal ovaries not visualized. CERVICAL LENGTH: 3.6 cm Closed. OTHER: No other significant finding. IMPRESSION: LIVING INTRAUTERINE . ESTIMATED GESTATIONAL AGE 32 weeks NO VISUALIZED ANOMALIES. Trimester of : Third trimester - 28 weeks to delivery. TECHNICAL DOCUMENTATION: JOB ID: [id number] [employer]- All Rights Reserved Reading location - IP/workstation name: [facility]-[email or web address]
== END 2017-11-24 15:07 | disposition home or self-care (01) ==
LOC: LC 11:09
PROVIDERS: ATTEND Student in an Organized Health Care Education/Training Program
PROC: 4A1HXCZ Monitoring of Products of Conception, Cardiac Rate, External Approach (ICD-10-PCS; principal; 2017-11-24)
DX: O47.03 False labor before 37 completed weeks of gestation, third trimester (principal); O09.33 Supervision of pregnancy with insufficient antenatal care, third trimester; Z3A.32 32 weeks gestation of pregnancy
CPT/HCPCS: 59025; 84112; 81001; 80307; 76805; 93976; Q0114

== ENCOUNTER 2017-12-05 17:51 | Outpatient (CLI) | payer MEDICAID ==
--- NOTE | 2017-12-05 18:03 | Non Stress Test Report ---
Non Stress Test Datetime Report Generated by CPN: 12/05/2017 18:03 DEMOGRAPHIC EGA NST: 32.3 INDICATION Indication for Study: Other Indication for Study (NST) Other: lc MONITORING Monitor Explained: Monitor Explained; Test Explained; Patient Verbalized Understanding Time on Monitor: 11/24/2017 11:32 Time off Monitor: 11/24/2017 12:47 NST Duration: 75 NST INTERVENTIONS NST Interventions: PO Hydration; Reposition Patient Physician Notified NST: Dr Whipple BABY A: [id number] BABY A Movement : Present Contraction Frequency : occassional FHR Baseline : 120 Accelerations : 15X15 Decelerations : None Variability : Moderate 6-25bpm NST Review: Meets Criteria for Reactive NST NST Review and Verified By : ALEKSANDRA Mac Results: Reactive NST REPORT Report Trigger: Send Report
--- NOTE | 2017-12-05 19:34 | Non Stress Test Report ---
Non Stress Test Datetime Report Generated by CPN: 12/05/2017 19:34 DEMOGRAPHIC EGA NST: 34.0 INDICATION Indication for Study: Other Indication for Study (NST) Other: LABOR CHECK MONITORING Monitor Explained: Monitor Explained; Test Explained; Patient Verbalized Understanding Time on Monitor: 12/05/2017 18:10 Time off Monitor: 12/05/2017 19:33 NST Duration: 83 NST INTERVENTIONS NST Interventions: PO Hydration; Reposition Patient Physician Notified NST: Dr Whipple BABY A Movement : Present Contraction Frequency : rare FHR Baseline : 125 Accelerations : 15X15 Decelerations : None Variability : Moderate 6-25bpm NST Review: Meets Criteria for Reactive NST NST Review and Verified By : Clemencia Bellavancpatrica RNC NST Results: Reactive NST REPORT Report Trigger: Send Report
[2017-12-05 20:28] LABS: APPEARANCE,URINE SLIGHTLY-CLOUDY; BILIRUBIN,URINE NEGATIVE (NEGATIVE); COLOR,URINE YELLOW; GLUCOSE, URINE NEGATIVE (NEGATIVE); KETONES,URINE NEGATIVE (NEGATIVE); LEUKOCYTE ESTERASE,URINE TRACE (NEGATIVE); NITRITE,URINE NEGATIVE (NEGATIVE); PROTEIN,URINE NEGATIVE (NEGATIVE); URINE SPECIFIC GRAVITY 1.012
[2017-12-05 20:55] LABS: URINE AMPHETAMINES SCREEN NEGATIVE; URINE BARBITURATES SCREEN NEGATIVE; URINE BENZODIAZEPINES SCREEN NEGATIVE; URINE COCAINE SCREEN NEGATIVE; URINE METHADONE SCREEN NEGATIVE; URINE PHENCYCLIDINE SCREEN NEGATIVE
[2017-12-05 21:06] LABS: URINE MARIJUANA (THC) SCREEN UNCONFIRMED POSITIVE
[2017-12-05 21:18] LABS: ABSOLUTE EOSINOPHILS # (AUTO) 0.2 10^3/uL (0.0-0.6); ABSOLUTE MONOCYTES (AUTO) 0.8 10^3/uL (0.1-1.4); ABSOLUTE NEUT (AUTO) 6.8 10^3/uL (1.7-8.2); BASOPHILS % (AUTO) 0.2 % (0-2); EOSINOPHILS % (AUTO) 1.6 % (0-6); HEMATOCRIT 29.1 % (36.0-47.0); HEMOGLOBIN 10.5 g/dL (12.0-15.5); LYMPHOCYTES % (AUTO) 20.6 % (13-45); MEAN CORPUSCULAR HEMOGLOBIN 33.5 pg (27.0-33.4); MEAN CORPUSCULAR HGB CONC 36.1 g/dL (32.0-36.0); MEAN CORPUSCULAR VOLUME 93 fl (80-97); MONOCYTES % (AUTO) 7.7 % (3-13); PLATELET COUNT 191 10^3/uL (150-450); RED BLOOD COUNT 3.13 10^6/uL (3.72-5.28); RED CELL DISTRIBUTION WIDTH 13.1 % (11.5-14.0); SEGMENTED NEUTROPHILS % (AUTO) 69.9 % (42-78); TOTAL CELLS COUNTED % (AUTO) 100 %; WHITE BLOOD COUNT 9.7 10^3/uL (4.0-10.5)
[2017-12-05 21:43] LABS: ALANINE AMINOTRANSFERASE 16 U/L (9-52); ALBUMIN 3.4 g/dL (3.5-5.0); ALKALINE PHOSPHATASE 70 U/L (38-126); ANION GAP 9 (5-19); ASPARTATE AMINO TRANSFERASE 16 U/L (14-36); BILIRUBIN,DIRECT 0.3 mg/dL (0.0-0.4); BILIRUBIN,TOTAL 0.4 mg/dL (0.2-1.3); BLOOD UREA NITROGEN 9 mg/dL (7-20); CALCIUM 9.4 mg/dL (8.4-10.2); CARBON DIOXIDE 23 mmol/L (22-30); CHLORIDE 107 mmol/L (98-107); GLUCOSE 92 mg/dL (75-110); POTASSIUM 3.7 mmol/L (3.6-5.0); SODIUM 139.3 mmol/L (137-145); TOTAL PROTEIN 6.3 g/dL (6.3-8.2)
[2017-12-10 10:37] LABS: HEPATITIS C QUANTITATION 723000 IU/mL (.)
[2017-12-11 08:06] LABS: HEPATITIS C LOG10 5.859 (.)
== END 2017-12-05 21:25 | disposition home or self-care (01) ==
LOC: LC 17:51
PROVIDERS: ATTEND Student in an Organized Health Care Education/Training Program
PROC: 4A1HXCZ Monitoring of Products of Conception, Cardiac Rate, External Approach (ICD-10-PCS; principal; 2017-12-05)
DX: O99.283 Endocrine, nutritional and metabolic diseases complicating pregnancy, third trimester (principal); E86.0 Dehydration; Z3A.34 34 weeks gestation of pregnancy
CPT/HCPCS: 59025; 36415; 85025; 81005; 80053; 87522; 80307; G0480 ×2

== ENCOUNTER 2018-01-18 16:27 | Outpatient (CLI) | payer MEDICAID ==
[2018-01-18 17:26] LABS: ALANINE AMINOTRANSFERASE 22 U/L (9-52); ALBUMIN 3.3 g/dL (3.5-5.0); ALKALINE PHOSPHATASE 120 U/L (38-126); ASPARTATE AMINO TRANSFERASE 15 U/L (14-36); BILIRUBIN,DIRECT 0.3 mg/dL (0.0-0.4); BILIRUBIN,TOTAL 0.5 mg/dL (0.2-1.3); TOTAL PROTEIN 6.3 g/dL (6.3-8.2)
[2018-01-18 18:29] LABS: APPEARANCE,URINE SLIGHTLY-CLOUDY; BILIRUBIN,URINE NEGATIVE (NEGATIVE); COLOR,URINE YELLOW; GLUCOSE, URINE NEGATIVE (NEGATIVE); KETONES,URINE NEGATIVE (NEGATIVE); LEUKOCYTE ESTERASE,URINE TRACE (NEGATIVE); NITRITE,URINE NEGATIVE (NEGATIVE); PROTEIN,URINE NEGATIVE (NEGATIVE); URINE SPECIFIC GRAVITY 1.014
[2018-01-18 18:44] LABS: URINE AMPHETAMINES SCREEN NEGATIVE; URINE BARBITURATES SCREEN NEGATIVE; URINE BENZODIAZEPINES SCREEN NEGATIVE; URINE COCAINE SCREEN NEGATIVE; URINE MARIJUANA (THC) SCREEN NEGATIVE; URINE METHADONE SCREEN NEGATIVE; URINE PHENCYCLIDINE SCREEN NEGATIVE
[2018-01-18 19:58] LABS: CHLAM PCR NOT DETECTED (NOT DETECT); GON PCR NOT DETECTED (NOT DETECT)
--- NOTE | 2018-01-18 20:12 | RADIOLOGY REPORT (SQ) ---
EXAM DESCRIPTION: U/S PROFILE W/O STRESS COMPLETED DATE/TIME: 01/18/2018 7:53 pm REASON FOR STUDY: Nonreactive strip COMPARISON: None. TECHNIQUE: Limited patel-scale realtime and static images of the fetus to measure specified parameter s. LIMITATIONS: None. FINDINGS: HEART RATE: 123 beats per minute. ANTONI: 10 cm. BREATHING MOVEMENT: 2 points. MOVEMENT: 2 points. POSTURE AND TONE: 2 points. QUALITATIVE ANTONI: 2 points. OTHER: Vertex lie. IMPRESSION: BIOPHYSICAL PROFILE: 01/24. Trimester of : Third - 28 weeks to delivery COMMENT: BREATHING MOVEMENTS: 2 POINTS: PRESENT 0 POINTS: ABSENT MOTION: 2 POINTS: PRESENT 0 POINTS: ABSENT TONE: 2 POINTS: PRESENT 0 POINTS: ABSENT AMNIOTIC FLUID VOLUME: 2 POINTS: LARGEST POCKET GREATER THAN 2 CM DEPTH. 0 POINTS: NO POCKET OF 2 CM. TECHNICAL DOCUMENTATION: JOB ID: [id number] [employer]- All Rights Reserved Reading location - IP/workstation name: [email or web address]
[2018-01-22 13:37] LABS: HEPATITIS C QUANTITATION 947000 IU/mL (.)
== END 2018-01-18 20:37 | disposition home or self-care (01) ==
LOC: LC 16:27
PROVIDERS: ATTEND Obstetrics & Gynecology Gynecology
PROC: 4A1HXCZ Monitoring of Products of Conception, Cardiac Rate, External Approach (ICD-10-PCS; principal; 2018-01-18)
DX: O47.1 False labor at or after 37 completed weeks of gestation (principal); O48.0 Post-term pregnancy; Z3A.40 40 weeks gestation of pregnancy
CPT/HCPCS: 36415; 76819; 80076; 80307; 81005; 87081; 87491; 87522; 87591

== ENCOUNTER 2018-01-19 11:54 | Inpatient (IN) | payer MEDICAID ==
--- NOTE | 2018-01-19 12:01 | Non Stress Test Report ---
Non Stress Test Datetime Report Generated by CPN: 01/19/2018 12:00 DEMOGRAPHIC EGA NST: 40.2 INDICATION Indication for Study: Ordered by Provider MONITORING Monitor Explained: Monitor Explained; Test Explained; Patient Verbalized Understanding Time on Monitor: 01/18/2018 16:35 Time off Monitor: 01/18/2018 19:17 NST Duration: 162 NST INTERVENTIONS NST Interventions: PO Hydration; Reposition Patient Physician Notified NST: Dr. Ramírez BABY A: [id number] BABY A Movement : Present Contraction Frequency : 4-11 FHR Baseline : 120 Accelerations : 15X15 Decelerations : None Variability : Moderate 6-25bpm NST Review: Meets Criteria for Reactive NST NST Review and Verified By : ALEKSANDRA Whitman Results: Reactive NST REPORT Report Trigger: Send Report
[2018-01-19] MEDS ORDERED: OXYTOCIN/NORMAL SALINE 20 UNIT/1,000 ML RTUINJ ONE (12:32)
[2018-01-19] MEDS ORDERED: LIDOCAINE 1% INJ-PF (10 MG/ML) 30 ML SDV ONE ×2 (12:32→12:57)
[2018-01-19] MEDS ORDERED: MISOPROSTOL 0.2 MG TABLET ONE (12:32)
[2018-01-19] MEDS ORDERED: PENICILLIN G-K 5 MILLION UNIT VIAL ONE (12:33)
[2018-01-19] MEDS ORDERED: PENICILLIN G POTASSIUM 5,000,000 UNIT in DEXTROSE 5%-WATER 100 ML IV ONE (12:44)
[2018-01-19] MEDS ORDERED: BENZOCAINE/MENTHOL AEROSOL SPRAY 56 ML TOP PRN (13:16)
[2018-01-19] MEDS ORDERED: DIBUCAINE 1% OINTMENT 28 GM TP PRN (13:16)
[2018-01-19] MEDS ORDERED: PSEUDOEPHEDRINE HCL 30 MG TABLET PO PRN (13:16)
[2018-01-19] MEDS ORDERED: OXYTOCIN/NORMAL SALINE 20 UNIT/1,000 ML RTUINJ IV PRN (13:16)
[2018-01-19] MEDS ORDERED: PROMETHAZINE HCL INJ 25 MG/1 ML VIAL IV PRN (13:16)
[2018-01-19] MEDS ORDERED: ACETAMINOPHEN 325 MG TABLET PO PRN (13:16)
[2018-01-19] MEDS ORDERED: MAGNESIUM HYDROXIDE SUSP 30 ML UDCUP PO PRN (13:16)
[2018-01-19] MEDS ORDERED: NA PHOS,M-B/NA PHOS,DI-BA (ADULT) 133 ML ENEMA PR PRN (13:16)
[2018-01-19] MEDS ORDERED: GLYCERIN/WITCH HAZEL LEAF 1 EACH MED..PAD TP PRN (13:16)
[2018-01-19] MEDS ORDERED: MEASLES,MUMPS&RUBELLA VACC/PF 0.5 ML VIAL SUBCUT PRN (13:16)
[2018-01-19] MEDS ORDERED: DIPH/PERTUSS(ACELL)/TETANUS VAC/PF 0.5 ML SYR (>=10YO) IM PRN (13:16)
[2018-01-19] MEDS ORDERED: ZOLPIDEM TARTRATE 5 MG TABLET PO PRN (13:16)
[2018-01-19] MEDS ORDERED: PROMETHAZINE HCL 25 MG SUPP.RECT PR PRN (13:16)
[2018-01-19] MEDS ORDERED: PROMETHAZINE HCL 25 MG TABLET PO PRN (13:16)
[2018-01-19] MEDS ORDERED: DIPHENHYDRAMINE HCL 25 MG CAPSULE PO PRN (13:16)
[2018-01-19] MEDS ORDERED: ACETAMINOPHEN WITH CODEINE #3 TABLET ONE (13:33)
[2018-01-19 13:42] LABS: APPEARANCE,URINE TURBID; BILIRUBIN,URINE NEGATIVE (NEGATIVE); COLOR,URINE YELLOW; GLUCOSE, URINE NEGATIVE (NEGATIVE); KETONES,URINE NEGATIVE (NEGATIVE); LEUKOCYTE ESTERASE,URINE TRACE (NEGATIVE); NITRITE,URINE NEGATIVE (NEGATIVE); PROTEIN,URINE NEGATIVE (NEGATIVE); URINE SPECIFIC GRAVITY 1.016
[2018-01-19 13:42] LABS: ABSOLUTE LYMPHOCYTES (AUTO) 2.3 10^3/uL (0.5-4.7); ABSOLUTE MONOCYTES (AUTO) 0.6 10^3/uL (0.1-1.4); ABSOLUTE NEUT (AUTO) 7.3 10^3/uL (1.7-8.2); BASOPHILS % (AUTO) 0.1 % (0-2); EOSINOPHILS % (AUTO) 0.5 % (0-6); HEMATOCRIT 34.8 % (36.0-47.0); HEMOGLOBIN 12.1 g/dL (12.0-15.5); LYMPHOCYTES % (AUTO) 22.2 % (13-45); MEAN CORPUSCULAR HEMOGLOBIN 32.2 pg (27.0-33.4); MEAN CORPUSCULAR HGB CONC 34.9 g/dL (32.0-36.0); MEAN CORPUSCULAR VOLUME 92 fl (80-97); MONOCYTES % (AUTO) 6.1 % (3-13); PLATELET COUNT 178 10^3/uL (150-450); RED BLOOD COUNT 3.77 10^6/uL (3.72-5.28); RED CELL DISTRIBUTION WIDTH 13.2 % (11.5-14.0); SEGMENTED NEUTROPHILS % (AUTO) 71.1 % (42-78); TOTAL CELLS COUNTED % (AUTO) 100 %; WHITE BLOOD COUNT 10.3 10^3/uL (4.0-10.5)
[2018-01-19 14:05] LABS: ALANINE AMINOTRANSFERASE 19 U/L (9-52); ALBUMIN 3.4 g/dL (3.5-5.0); ALKALINE PHOSPHATASE 135 U/L (38-126); ANION GAP 15 (5-19); ASPARTATE AMINO TRANSFERASE 19 U/L (14-36); BILIRUBIN,DIRECT 0.2 mg/dL (0.0-0.4); BILIRUBIN,TOTAL 0.5 mg/dL (0.2-1.3); BLOOD UREA NITROGEN 11 mg/dL (7-20); CALCIUM 9.6 mg/dL (8.4-10.2); CARBON DIOXIDE 18 mmol/L (22-30); CHLORIDE 105 mmol/L (98-107); GLUCOSE 114 mg/dL (75-110); POTASSIUM 3.6 mmol/L (3.6-5.0); SODIUM 137.9 mmol/L (137-145); TOTAL PROTEIN 6.5 g/dL (6.3-8.2)
[2018-01-19 14:10] LABS: URINE AMPHETAMINES SCREEN NEGATIVE; URINE BARBITURATES SCREEN NEGATIVE; URINE BENZODIAZEPINES SCREEN NEGATIVE; URINE COCAINE SCREEN NEGATIVE; URINE MARIJUANA (THC) SCREEN NEGATIVE; URINE METHADONE SCREEN NEGATIVE; URINE PHENCYCLIDINE SCREEN NEGATIVE
--- NOTE | 2018-01-19 14:14 | Admission Physical ---
Datetime Report Generated by CPN: 01/19/2018 14:13 CURRENT ADMISSION Chief Complaint: Uterine Contractions Indication for Induction: Not Applicable Admit Impression : Term, Intrauterine ; Active Labor Admit Plan: Admit to Unit; Initiate Labor Protocol ALLERGIES Medication Allergies: No Medication Allergies: No Known Allergies (12/05/2017) Latex: No Latex Allergies Food Allergies: None Environmental Allergies: None OBSTETRICAL HISTORY EDC: 01/16/2018 00:00 : 5 Para: 1 Term: 0 : 0 SAB: 1 IAB: 1 Ectopic: 1 Livin Cesareans: 0 VBACs: 0 Multiple Births: 0 SEE RECORDS Alcohol: Yes Marijuana : No Cocaine: No Other Illicit Drugs: Yes Cigarettes: Current Everyday Smoker. [id number] PHYSICAL EXAM General: Abnormal HEENT: Normal Neurologic: Abnormal Thyroid: Deferred Heart: Normal Lungs: Normal Breast: Deferred Back: Normal Abdomen: Normal Genitourinary Exam: Normal Extremities: Normal DTRs: Normal Pelvic Type: Adequate Physical Exam Comments: altered on arrival. Non verbal initially then when attempted to ask patient what brought her in today she became very hostile. Used significant profanity and then called me an F'''' B''''' and to leave the room. She threw the urine specimen cup against the wall in the bathroom. She persisted to be hostile after exiting the restroom. Attempted to discuss with the patient and the FOB in room that we were attempting to assist her and evaluate if she was in labor. She would not initially cooperative with pelvic exam but then allowed the nurse to perform an exam. No lesions noted on pelvic exam but pt did not cooperate for SSE. Dissassociated from baby - refer to baby as "the thing". THe FOB does appear invested in baby. She threw a swing at FOB. Nursing supervisor labor gang and nursing assistants teacher called. Security also notified. senior media planner and Psych notified to help assist patient with her care even after discharge Vital Signs: Reviewed VAGINAL EXAM Dilatation: 5 Effacement: 90 Station: -1 Contraction Comments: regular MEMBRANES Membranes: Intact FETUS A EGA: 40.3 Monitoring: External US FHR- Baseline: 125 Variability: Moderate 6-25bpm Accelerations: 15X15 Decelerations: None FHR Category: Category I Presentation: Vertex Admit Comment: 27yo at 40+3ega presents in active labor and delivered precipitously. VERY limited care. Multiple triage visits. Only 4 visits in office. She has a h/o HSV but never began suppressive treatment. No lesions noted on exam - but limited exam allowed by patient. EtOH and narcotic use in this . HSV labs done. Pt is also Hep C positive - Hep C viral load sent yesterday. GBS unkonwn - pt rec'd one dose of PCN at delivery. DSS involved with other child. Mental health issues - see notes from office as well. Admit to labor and delivery. labs ordered and NICU notified. PLANS FOR LABOR AND DELIVERY Labor and Delivery: None Pain Management: Natural Feeding Preference: Breast Benefit of Breast Feed Discussed: Yes Circumcision: N/A INFORMED CONSENT Informed Consent Obtained: Vaginal Delivery; Risks, Benefits and Alternatives Discussed Signature: with User ID: [email or web address]
[2018-01-19] MEDS ORDERED: ACETAMINOPHEN WITH CODEINE #3 TABLET PO PRN (14:41)
--- NOTE | 2018-01-19 15:13 | Delivery Summary ---
Del Sum A-C Datetime Report Generated by CPN: 01/19/2018 15:12 DELIVERY PERSONNEL DELIVERY PERSONNEL: [id number] Delivery Doctor:: Beba Whipple MD Labor and Delivery Nurse:: Lizzy Arevalo RNcommunications representative Nurse:: KRISHNA Plascencia Nursery Nurse:: Erinn Sierra RN Student Observers:: Maya Bills RN Beer Maker/NURSE PRACTITIONER: Blanca Esquivel, INSPECTOR MULTIFOCAL LENS Additional Personnel: : Miguelito Garcia RN MATERNAL INFORMATION Delivery Anesthesia: Pudendal Medications After Delivery: Pitocin Bolus-Please Comment; Other-Please Comment Meds After Delivery Comment: cytotec 1000 mcg placed rectal Maternal Complications: Precipitous Labor (<3hrs); Other Complication Details: limited care, strong drug history Provider Comments: Pudendal block performed after patient consented. Patient consented. VFI delivered in Direct OA over intact perineum. Shoulders and body delivered without difficulty. Cord doubly clamped and cut and to warmer. Pt declined baby onto abdomen for NRP. Placenta delivered intact except for some mebranes noted and easily evacuated manually. Due to mild atony. Meza to gravity placed - also need urine specimen. Intact perineum. Cytotec 1000mcg placed Per rectum for uterine tone. Good hemostasis after medication given. LABOR SUMMARY EDC: 01/16/2018 00:00 No. Babies in Womb: 1 Attempted: No Labor Anesthesia: Intrathecal LABOR INFORMATION Reason for Induction: Not Applicable Onset of Labor: 01/19/2018 11:30 Complete Dilatation: 01/19/2018 13:00 Oxytocin: N/A Group B Beta Strep: unknown Antibiotics # of Doses: 1 Antibiotics Time of Last Dose: 1248 Name of Antibiotic Given: Penicillin Steroids Given: None Reason Steroids Not Administered: Not Applicable MEMBRANES Membranes Rupture Method: Artificial Rupture of Membranes: 01/19/2018 13:00 Length of Rupture (hr): 0.05 Amniotic Fluid Color: Moderate Meconium Amniotic Fluid Amount: Moderate Amniotic Fluid Odor: Normal STAGES OF LABOR Stage 1 hr: 1 Stage 1 min: 30 Stage 2 hr: 0 Stage 2 min: 3 Stage 3 hr: 0 Stage 3 min: 3 Total Time in Labor hr: 1 Total Time in Labor min: 36 VAGINAL DELIVERY Episiotomy: None Laceration #1: None Laceration Extension #1: N/A Laceration Repair: Not Applicable Laceration Repair Note: no perineal lacerations. Sponge Count Correct: Yes Sharps Count Correct: Yes CSECTION DELIVERY Primary Indication: N/A Secondary Indication: N/A CSection Incidence: N/A Labor: N/A Elective: N/A CSection Incision: N/A BABY A INFORMATION Delivery Date/Time: 01/19/2018 13:03 Method of Delivery: Vaginal Born in Route : No : N/A Forceps: N/A Vacuum Extraction: N/A Shoulder Dystocia : No PRESENTATION/POSITION BABY A Presentation: Cephalic Cephalic Presentation: Vertex Vertex Position: Right Occipital Anterior Breech Presentation: N/A PLACENTA INFORMATION BABY A Placenta Delivery Time : 01/19/2018 13:06 Placenta Method of Delivery: Expressed Placenta Status: Delivered SCORES BABY A Heart Rate 1 min: >100 bpm Resp Effort 1 min: Good Cry Reflex Irritability 1 min: Cough or Sneeze or Pulls Away Muscle Tone 1 min: Active Motion Color 1 min: Blue/Pale Resuscitation Effort 1 min: Tactile Stimulation SCORE 1 MIN: 8 Heart Rate 5 min: >100 bpm Resp Effort 5 min: Good Cry Reflex Irritability 5 min: Cough or Sneeze or Pulls Away Muscle Tone 5 min: Active Motion Color 5 min: Blue/Pale Resuscitation Effort 5 min: Tactile Stimulation SCORE 5 MIN: 8 INFORMATION BABY A Gestational Age at Delivery: 40.3 Gestational Status: Full Term- 39- 40.6 Weeks Outcome : Liveborn Condition : Stable Sex: Female IDENTIFICATION BABY A Verification Date/Time: 01/19/2018 14:07 ID Band Number: [id number] Mother's Name Verified: Yes Infant RN Verifying : Deisy Arevalo, RN Additional Verifying Personnel: Edith Garcia, RN WEIGHT/LENGTH BABY A Infant Birthweight (gm): 2830 Weight (lb): 6 Infant Weight (oz): 4 Infant Length (in): 19.50 Length (cm): 49.53 CORD INFORMATION BABY A No. Cord Vessels: 3 Nuchal Cord : N/A ASSESSMENT BABY A Skin to Skin: No BABY B INFORMATION : N/A SIGNATURES Signature: with User ID: [email or web address]
[2018-01-19] MEDS ORDERED: PENICILLIN G POTASSIUM 2,500,000 UNIT in DEXTROSE 5%-WATER 50 ML IV SCH (16:45)
[2018-01-19] MEDS: IBUPROFEN 800 MG TABLET PO SCH ×2 (18:34→21:16)
[2018-01-19] MEDS: FERROUS SULFATE 325 MG TABLET PO SCH (18:35)
[2018-01-19] MEDS: DOCUSATE SODIUM 100 MG CAPSULE PO SCH (18:35)
[2018-01-19] MEDS: FAMOTIDINE 20 MG TABLET PO SCH (21:16)
[2018-01-20] MEDS: IBUPROFEN 800 MG TABLET PO SCH ×3 (06:50→22:09)
[2018-01-20 06:56] LABS: HEMATOCRIT 29.9 % (36.0-47.0); HEMOGLOBIN 10.6 g/dL (12.0-15.5); MEAN CORPUSCULAR HGB CONC 35.4 g/dL (32.0-36.0); MEAN CORPUSCULAR VOLUME 90 fl (80-97); PLATELET COUNT 157 10^3/uL (150-450); RED BLOOD COUNT 3.31 10^6/uL (3.72-5.28); RED CELL DISTRIBUTION WIDTH 13.3 % (11.5-14.0)
[2018-01-20] MEDS: SENNOSIDES/DOCUSATE 8.6-50 MG 1 EACH TABLET PO SCH (09:40)
[2018-01-20] MEDS: FAMOTIDINE 20 MG TABLET PO SCH ×2 (09:40→22:09)
[2018-01-20] MEDS: DOCUSATE SODIUM 100 MG CAPSULE PO SCH ×2 (09:40→18:26)
[2018-01-20] MEDS: PRENATAL VITAMIN W DHA CAPSULE PO SCH (09:40)
[2018-01-20] MEDS: FERROUS SULFATE 325 MG TABLET PO SCH ×2 (09:40→18:26)
--- NOTE | 2018-01-20 09:52 | PDOC PROGRESS REPORT ---
Subjective-OB Progress Note for:: 01/20/18 Subjective: reports bleeding slowing, pain controlled with current meds, denies needs Physical Exam (OB) Vital Signs: Temp Pulse Resp BP Pulse Ox 98.5 F 51 L 16 122/58 L 100 01/19/18 19:47 01/19/18 19:47 01/19/18 19:47 01/19/18 19:47 01/19/18 19:47 Intake & Output 01/19/18 01/20/18 01/21/18 06:59 06:59 06:59 Weight 89.6 kg - Closure Type: OP Site - Abdomen Description: Soft, Round Hernia Present: No Fundal Description: Firm, Midline Fundal Height: u/u - u/2 - Abdominal Distension: No distension - Extremities Lower extremities: Kervin's sign - neg Calf: Normal, Nontender Objective-Diagnostic Laboratory: 01/20/18 06:37 01/19/18 13:19 01/19/18 01/19/18 01/19/18 13:19 13:19 13:19 WBC 10.3 RBC 3.77 Hgb 12.1 Hct 34.8 L MCV 92 MCH 32.2 MCHC 34.9 RDW 13.2 Plt Count 178 Seg Neutrophils % 71.1 Lymphocytes % 22.2 Monocytes % 6.1 Eosinophils % 0.5 Basophils % 0.1 Absolute Neutrophils 7.3 Absolute Lymphocytes 2.3 Absolute Monocytes 0.6 Absolute Eosinophils 0.0 Absolute Basophils 0.0 Sodium 137.9 Potassium 3.6 Chloride 105 Carbon Dioxide 18 L Anion Gap 15 BUN 11 Creatinine 0.72 Est GFR ( Amer) > 60 Est GFR (Non-Af Amer) > 60 Glucose 114 H Calcium 9.6 Total Bilirubin 0.5 AST 19 ALT 19 Alkaline Phosphatase 135 H Total Protein 6.5 Albumin 3.4 L Urine Color Urine Appearance Urine pH Ur Specific [place] Urine Protein Urine Glucose (UA) Urine Ketones Urine Blood Urine Nitrite Ur Leukocyte Esterase Blood Type A POSITIVE Antibody Screen NEGATIVE 01/19/18 01/20/18 13:25 06:37 WBC 12.0 H RBC 3.31 L Hgb 10.6 L Hct 29.9 L MCV 90 MCH 32.0 MCHC 35.4 RDW 13.3 Plt Count 157 Seg Neutrophils % Lymphocytes % Monocytes % Eosinophils % Basophils % Absolute Neutrophils Absolute Lymphocytes Absolute Monocytes Absolute Eosinophils Absolute Basophils Sodium Potassium Chloride Carbon Dioxide Anion Gap BUN Creatinine Est GFR ( Amer) Est GFR (Non-Af Amer) Glucose Calcium Total Bilirubin AST ALT Alkaline Phosphatase Total Protein Albumin Urine Color YELLOW Urine Appearance TURBID Urine pH 7.0 Ur Specific [place] 1.016 Urine Protein NEGATIVE Urine Glucose (UA) NEGATIVE Urine Ketones NEGATIVE Urine Blood LARGE H Urine Nitrite NEGATIVE Ur Leukocyte Esterase TRACE H Blood Type Antibody Screen Assessment and Plan(PN) - Assessment and Plan (1) Vaginal delivery Is this a current diagnosis for this admission?: Yes (2) Drug use affecting Is this a current diagnosis for this admission?: Yes - Time Spent with Patient Time with patient: Less than 15 minutes Medications reviewed and adjusted accordingly: Yes - Disposition Anticipated Discharge: Home Within: within 24 hours
--- NOTE | 2018-01-20 18:37 | PSYCHOLOGICAL NOTE ---
Psych Note - Psych Note Psych Note: Met with patient and noticed that patient had a slight delay when answering questions. Patient denied any substance use but Nurse Bárbara reported that she was positive for opiates and THC. When asked why she was in the hospital, patient appeared to not understand the question and then blurted out that she had a baby. When Clinician asked what the sex of the baby was, patient waited about 10 seconds, said it was a boy and then changed her mind and said it was a girl. Patient reports that she went to [facility] [place] last year and was given methadone and suboxone. Patient denies any current mental health providers. Patient denies any plans to harm herself or the baby. However, Dr. Whipple had some concerns about an hospital say in November where patient was running around naked in the room and calling the baby a "thing". Patient reports that her BF lives with her but did not say anything about her 2 year old son. confirmed that the son is staying with his brother and sister in law until Mom comes home from the hospital. This Clinician staffed this case with SHANNAN Gilliam, Dr. Whipple and Candice ([employer] Farmworker). [facility] has been contacted and are requesting a social hold until Monday so that the [employer] that is already assigned to this case will have an opportunity to evaluate the situation. This clinician contacted at [phone]. confirmed that he is living in the home and denies ever leaving the home to stay anywhere else. Diagnosis: Schizoid Personality Disorder Impression/Plan: Patient was unable to maintain eye contact. Mood was withdrawn. Restricted range of emotional expressions. Patient was able to answer questions after a brief pause in between each question. Altered mental status. Nurse Granger reports that mom will be discharged on 01/21/18 but baby will be held for 5 days during the Child Protective Services investigation.
[2018-01-21] MEDS: IBUPROFEN 800 MG TABLET PO SCH (05:51)
[2018-01-21 06:15] LABS: HSV-II IGG AB 3.88 index (0.00-0.90)
[2018-01-21 07:42] VITALS: BP 105/57
[2018-01-21] MEDS: FERROUS SULFATE 325 MG TABLET PO SCH (09:11)
[2018-01-21] MEDS: PRENATAL VITAMIN W DHA CAPSULE PO SCH (09:11)
[2018-01-21] MEDS: DOCUSATE SODIUM 100 MG CAPSULE PO SCH (09:11)
[2018-01-21] MEDS: SENNOSIDES/DOCUSATE 8.6-50 MG 1 EACH TABLET PO SCH (09:11)
[2018-01-21] MEDS: FAMOTIDINE 20 MG TABLET PO SCH (09:11)
--- NOTE | 2018-01-21 09:21 | PDOC DISCHARGE SUMMARY ---
Final Diagnosis Discharge Date: 01/21/18 - Final Diagnosis (1) Vaginal delivery Is this a current diagnosis for this admission?: Yes (2) Drug use affecting Is this a current diagnosis for this admission?: Yes Discharge Data - Discharge Medication Prescriptions: Ibuprofen [Motrin 800 mg Tablet] 800 mg PO Q8 #60 tablet Home Medications: Ibuprofen [Motrin 800 mg Tablet] 800 mg PO Q8 #60 tablet 01/21/18 Vit/Dha [ Multi + Dha Capsule] 1 cap PO DAILY capsule Reason(s) for Admission: Onset of Labor Procedures: NST Intrapartum Procedure(s): Spontaneous Vaginal Delivery - Diagnosis Test Laboratory: Temp Pulse Resp BP Pulse Ox 97.7 F 56 L 16 105/57 L 99 01/21/18 07:11 01/21/18 07:11 01/21/18 07:11 01/21/18 07:11 01/21/18 07:11 01/19/18 01/19/18 01/20/18 13:19 13:25 06:37 RBC 3.77 3.31 L Hgb 12.1 10.6 L Hct 34.8 L 29.9 L Urine Opiates Screen NEGATIVE - Discharge information/Instructions Discharge Activity: Balance Activity w/Rest, Pelvic Rest Discharge Diet: Regular Disposition: HOME, SELF-CARE Follow up with: [facility] in: 4, Weeks
== END 2018-01-21 11:47 | disposition home or self-care (01) | DRG 774 ==
LOC: LC 11:54 → LR 12:33 → 2N 15:26
PROVIDERS: ADMIT Student in an Organized Health Care Education/Training Program; ATTEND Student in an Organized Health Care Education/Training Program
PROC: 10E0XZZ Delivery of Products of Conception, External Approach (ICD-10-PCS; principal; 2018-01-19)
PROC: 10907ZC Drainage of Amniotic Fluid, Therapeutic from Products of Conception, Via Natural or Artificial Opening (ICD-10-PCS; 2018-01-19)
PROC: 4A1HXCZ Monitoring of Products of Conception, Cardiac Rate, External Approach (ICD-10-PCS; 2018-01-19)
DX: O62.2 Other uterine inertia (principal); O98.413 Viral hepatitis complicating pregnancy, third trimester; O99.324 Drug use complicating childbirth; F19.90 Other psychoactive substance use, unspecified, uncomplicated; O99.334 Smoking (tobacco) complicating childbirth; F17.210 Nicotine dependence, cigarettes, uncomplicated; B19.20 Unspecified viral hepatitis C without hepatic coma; O62.3 Precipitate labor; O77.0 Labor and delivery complicated by meconium in amniotic fluid; Z3A.40 40 weeks gestation of pregnancy; Z37.0 Single live birth
CPT/HCPCS: 36415; 80053; 80307; 81005; 85025; 85027; 86592; 86695; 86696; 86850; 86900; 86901; 87086; 88307; J2540; J2590; J3490

== ENCOUNTER 2018-06-22 13:00 | Emergency (ER) | payer MEDICAID ==
--- NOTE | 2018-06-22 14:05 | ER Document Report ---
ED Medical Screen (RME) - General Chief Complaint: Psych Problem Stated Complaint: PSYC EVAL Time Seen by Provider: 06/22/18 13:54 TRAVEL OUTSIDE OF THE [place] IN LAST 30 DAYS: No - Related Data Allergies/Adverse Reactions: No Known Allergies Allergy (Verified 06/22/18 13:16) Past Medical History - Social History Chew tobacco use (# tins/day): No Drug Abuse: Heroin, Marijuana, Methamphetamine Renal/ Medical History: Denies: Hx Peritoneal Dialysis Psychiatric Medical History: Reports: Hx Anxiety, Hx Attention Deficit Hyperactivity Disorder, Hx Bipolar Disorder, Hx Depression, Hx Personality Disorder - Immunizations Hx Diphtheria, Pertussis, Tetanus Vaccination: Yes Physical Exam - Vital signs Vitals: Temp Pulse Resp BP Pulse Ox 97.9 F 65 16 115/71 100 06/22/18 13:33 06/22/18 13:33 06/22/18 13:33 06/22/18 13:33 06/22/18 13:33 Course - Re-evaluation Re-evalutation: 06/22/18 14:04 This is 27-year-old previous methamphetamine abuser who presents for evaluation of paranoia and delusions. Reportedly has been abstinent of drugs for the last week and a minimum except for marijuana. Her notes that she has been behaving in a bizarre fashion is paranoid recently destroyed their TV. I have seen and evaluated this patient, they have undergone a rapid medical screening examination, they will require reevaluation further examination potential further diagnostics and disposition determination by secondary provider. - Vital Signs Vital signs: Temp Pulse Resp BP Pulse Ox 97.9 F 65 16 115/71 100 06/22/18 13:33 06/22/18 13:33 06/22/18 13:33 06/22/18 13:33 06/22/18 13:33 Doctor's Discharge - Discharge Referrals: NICO DAO MD [Primary Care Provider] - Follow up as needed
[2018-06-22 15:31] LABS: ABSOLUTE EOSINOPHILS # (AUTO) 0.1 10^3/uL (0.0-0.6); ABSOLUTE LYMPHOCYTES (AUTO) 1.4 10^3/uL (0.5-4.7); ABSOLUTE MONOCYTES (AUTO) 0.4 10^3/uL (0.1-1.4); BASOPHILS % (AUTO) 0.3 % (0-2); EOSINOPHILS % (AUTO) 1.9 % (0-6); HEMATOCRIT 39.2 % (36.0-47.0); HEMOGLOBIN 13.7 g/dL (12.0-15.5); LYMPHOCYTES % (AUTO) 23.7 % (13-45); MEAN CORPUSCULAR HEMOGLOBIN 30.8 pg (27.0-33.4); MEAN CORPUSCULAR HGB CONC 34.9 g/dL (32.0-36.0); MEAN CORPUSCULAR VOLUME 88 fl (80-97); MONOCYTES % (AUTO) 7.5 % (3-13); PLATELET COUNT 187 10^3/uL (150-450); RED BLOOD COUNT 4.43 10^6/uL (3.72-5.28); RED CELL DISTRIBUTION WIDTH 12.9 % (11.5-14.0); SEGMENTED NEUTROPHILS % (AUTO) 66.6 % (42-78); TOTAL CELLS COUNTED % (AUTO) 100 %
[2018-06-22 15:56] LABS: ALANINE AMINOTRANSFERASE 114 U/L (9-52); ALKALINE PHOSPHATASE 54 U/L (38-126); ANION GAP 12 (5-19); ASPARTATE AMINO TRANSFERASE 40 U/L (14-36); BILIRUBIN,DIRECT 0.2 mg/dL (0.0-0.4); BILIRUBIN,TOTAL 0.7 mg/dL (0.2-1.3); BLOOD UREA NITROGEN 13 mg/dL (7-20); CALCIUM 10.2 mg/dL (8.4-10.2); CARBON DIOXIDE 26 mmol/L (22-30); CHLORIDE 102 mmol/L (98-107); GLUCOSE 83 mg/dL (75-110); POTASSIUM 3.9 mmol/L (3.6-5.0); SODIUM 140.4 mmol/L (137-145); TOTAL PROTEIN 8.4 g/dL (6.3-8.2)
[2018-06-22 15:57] LABS: ACETAMINOPHEN < 10 ug/mL (10-30); ALCOHOL < 10 mg/dL (NONE DETECTED); SALICYLATE < 1.0 mg/dL (2.0-20.0)
[2018-06-22 16:17] LABS: APPEARANCE,URINE CLOUDY; BILIRUBIN,URINE NEGATIVE (NEGATIVE); COLOR,URINE AMBER; GLUCOSE, URINE NEGATIVE (NEGATIVE); KETONES,URINE TRACE mg/dL (NEGATIVE); LEUKOCYTE ESTERASE,URINE NEGATIVE (NEGATIVE); NITRITE,URINE NEGATIVE (NEGATIVE); PROTEIN,URINE 30 mg/dL (NEGATIVE); URINE SPECIFIC GRAVITY 1.024
[2018-06-22 16:33] LABS: URINE AMPHETAMINES SCREEN NEGATIVE; URINE BARBITURATES SCREEN NEGATIVE; URINE BENZODIAZEPINES SCREEN NEGATIVE; URINE COCAINE SCREEN NEGATIVE; URINE MARIJUANA (THC) SCREEN UNCONFIRMED POSITIVE; URINE METHADONE SCREEN NEGATIVE; URINE PHENCYCLIDINE SCREEN NEGATIVE
--- NOTE | 2018-06-22 21:29 | ER Document Report ---
ED Psych Disorder / Suicide - General TRAVEL OUTSIDE OF THE [place] IN LAST 30 DAYS: No <VIDAL SALAMANCA - Last Filed: 06/22/18 21:23> <CESARIO VILLANUEVA - Last Filed: 06/23/18 12:31> - General Chief Complaint: Psych Problem Stated Complaint: PSYC EVAL Time Seen by Provider: 06/22/18 13:54 Notes: Patient is here for psychiatric evaluation. She says that she was "dropped off" by her boyfriend. In triage, patient reportedly is being dazed and confused not able to recall her children's names. She tells me she has a 2-year-old and a 4-month-old at home but I did not ask for the names. She has been described as paranoid and delusional. Question patient about past history and she says that she does have anxiety and bipolar disorder and PTSD. Also some reference to the fact the patient abuses some drugs. She says she is only smoked marijuana recently. Her drug screen confirms that she is only positive for marijuana. (VIDAL SALAMANCA) - Related Data Allergies/Adverse Reactions: No Known Allergies Allergy (Verified 06/22/18 13:16) Past Medical History - Social History Smoking Status: Current Every Day Smoker Chew tobacco use (# tins/day): No Drug Abuse: Heroin, Marijuana, Methamphetamine Family History: Reviewed & Not Pertinent Patient has suicidal ideation: No Patient has homicidal ideation: No Psychiatric Medical History: Reports: Hx Anxiety, Hx Bipolar Disorder, Hx Depression, Hx Personality Disorder - Immunizations Hx Diphtheria, Pertussis, Tetanus Vaccination: Yes <VIDAL SALAMANCA - Last Filed: 06/22/18 21:23> Review of Systems <VIDAL SALAMANCA - Last Filed: 06/22/18 21:23> - Review of Systems Notes: REVIEW OF SYSTEMS: CONSTITUTIONAL : Denies fever. EENT: Denies eye, ear, nose or mouth or throat pain or other symptoms. CARDIOVASCULAR: Denies chest pain. RESPIRATORY: Denies cough, chest congestion, or shortness of breath. GASTROINTESTINAL: Denies abdominal pain or nausea, vomiting, or diarrhea. GENITOURINARY: Denies difficulty or painful urinating, urinary frequency, blood in urine. MUSCULOSKELETAL: Denies back or neck pain. Denies joint pain or swelling. SKIN: Denies rash or skin lesions. NEUROLOGICAL: Denies LOC or altered mental status. Denies headache. Denies sensory loss or motor deficits. ALL OTHER SYSTEMS REVIEWED AND NEGATIVE. (VIDAL SALAMANCA) Physical Exam - Vital signs Interpretation: Normal <VIDAL SALAMANCA - Last Filed: 06/22/18 21:23> - Vital signs Vitals: Temp Pulse Resp BP Pulse Ox 97.9 F 65 16 115/71 100 06/22/18 13:33 06/22/18 13:33 06/22/18 13:33 06/22/18 13:33 06/22/18 13:33 Notes: PHYSICAL EXAMINATION: GENERAL: Well-appearing, in no acute distress. Patient takes a long time answering questions, almost as if she is thinking about her answer so that it will sound unusual. She is calm and cooperative. Vital signs are all normal. HEAD: Atraumatic, normocephalic. EYES: Pupils equal round and reactive to light, extraocular movements intact. ENT: oropharynx clear without exudates. Moist mucous membranes. NECK: Normal range of motion, supple. LUNGS: Breath sounds clear and equal bilaterally. HEART: Regular rate and rhythm without murmurs. ABDOMEN: Soft, nontender. No guarding or rebound. No masses. BACK: No tenderness throughout entire back. EXTREMITIES: Normal range of motion without pain. NEUROLOGICAL: Normal speech, normal gait. Normal sensory, motor, and reflex exams. Awake, alert, and oriented x3. Cranial nerves normal. PSYCH: Normal mood, normal affect. SKIN: Warm, dry, no rashes. (VIDAL SALAMANCA) Course - Laboratory Result Diagrams: 06/22/18 15:10 06/22/18 15:10 <VIDAL SALAMANCA - Last Filed: 06/22/18 21:23> - Laboratory Result Diagrams: 06/22/18 15:10 06/22/18 15:10 <CESARIO VILLANUEVA - Last Filed: 06/23/18 12:31> - Vital Signs Vital signs: Temp Pulse Resp BP Pulse Ox 98.2 F 71 20 110/66 98 06/23/18 01:30 06/23/18 01:30 06/23/18 01:30 06/23/18 01:30 06/23/18 01:30 - Laboratory Laboratory results interpreted by me: 06/22/18 06/22/18 15:10 15:56 AST 40 H ALT 114 H Total Protein 8.4 H Urine Protein 30 H Urine Ketones TRACE H Urine Blood MODERATE H Urine Urobilinogen 2.0 H Salicylates < 1.0 L Acetaminophen < 10 L Discharge <VIDAL SALAMANCA - Last Filed: 06/22/18 21:23> <CESARIO VILLANUEVA - Last Filed: 06/23/18 12:31> - Discharge Clinical Impression: Altered mental status, Cannabis abuse with intoxication delirium Condition: Stable Disposition: HOME, SELF-CARE Additional Instructions: You were assessed and evaluated [facility] by the medical and behavioral teams for intoxication of an unknown substance and are now considered appropriate for discharge. During your stay you received the following services: initial medical screening, labs, EKG, meal service, direct staff observation, nursing services, case management, clinical evaluation and re-evaluation, physician assessment and re-assessments, 1:1 counseling, and resources. Review of your records reveal you have a history of substance abuse and mental health problems accompanied by non-compliance with your medications and treatment. You are encouraged to attend your appointment with [facility] scheduled for next week and to follow the prescribed treatment plan as order by the physician. You are also encouraged to avoid the use of marijuana as it appears you consumed tainted product. You are provided with outpatient resources for substance abuse agencies and detox facilities should your desire to seek additional treatment. NARCOTIC / OPIOID ABUSE: Narcotics and opioids are pain-relieving drugs that are often abused. They are addicting. Narcotics cause euphoria, but it often takes increasing amounts to "feel good" and avoid withdrawal symptoms. Overdose of narcotics causes small pupils, coma, and decreased breathing. It's a common cause of . Purity of street narcotics is unpredictable. Injection of narcotics is risky for abscesses, endocarditis (heart infection), pneumonia, and AIDS. Withdrawal from narcotics causes goose bumps, watery mouth, sweating, nasal congestion, muscle aches, abdominal cramps, vomiting, and diarrhea. There's often restlessness and confusion. Treatment programs are available, but you must make the decision to quit. Medication (such as clonidine) can be prescribed to control the symptoms of withdrawal. AMPHETAMINE / METHAMPHETAMINE ABUSE: Amphetamines are addicting stimulants. Amphetamines overstimulate the nervous system and give a false feeling of power and mastery. These drugs may be obtained as prescription pills for weight loss, narcolepsy, or attention-deficit disorder. More often they're bought as an illegal street drug, methamphetamine (crank, crystal, speed). Using amphetamines repeatedly can lead to serious medical problems including malnutrition, severe depression, and paranoia. It can take increasing amounts to feel good. Eventually, there will be a "burn out." When you go off amphetamines there is a period of depression that may last for weeks or even months. High doses of amphetamines can cause seizures, confusion, hallucinations, delusions, high blood pressure, muscle damage, heart damage, or sudden . Many times these deadly complications occur even with "normal" doses. Injection of amphetamines is risky for developing abscesses, endocarditis (heart infection), pneumonia, and AIDS. Withdrawal from amphetamines often causes anxiety, depression, and drug cravings. Some users become paranoid and psychotic. There may be cramps, nausea, and vomiting. Many treatment programs are available, but you must make the decision to quit. Medication can be prescribed to control the symptoms of amphetamine toxicity (beta blockers or benzodiazepines). Withdrawal symptoms may require tranquilizers. OVERDOSE / INGESTION: You have taken more medication than you should have. After your evaluation and care, it is felt that your overdose is not likely to be harmful or of any significant consequences to you and you are being discharged. In the future, you should be careful not to take more medications than what is prescribed for you. Although your overdose does not seem to be of any danger to you at this time, if you develop any unusual or unexpected symptoms after your discharge, you should return to the Emergency Department immediately for re-evaluation. INSTRUCTIONS FOR HOME CARE FOLLOWING DRUG OVERDOSAGE: The doctor feels it's safe for you to go home. You will need to be observed. If charcoal and a laxative was given to you, expect some loose black stools soon. Take no medications unless approved by a physician, including alcohol. If drowsy, lie on your stomach or side for sleeping to avoid aspiration if vomiting occurs. Take only liquids by mouth until there is no more nausea. FOR THE OBSERVER: Observe the patient for the next 24 hours and call or go to the hospital if any of the following are noted: prolonged or repeated vomiting, difficulty in arousing, convulsions (seizures or fits), fever, persistent cough, breathing that is too slow or too rapid, or confused or bizarre behavior. If a counselling visit has been arranged, make sure the patient attends. Call the physician or poison control if you have questions. FOLLOW-UP CARE: If you have been referred to a physician for follow-up care, [facility] for [facility] appointment as you were instructed or within the next two days. If you experience worsening or a significant change in your symptoms, notify the physician immediately or return to the Emergency Department at any time for re-evaluation. Referrals: NICO DAO MD [Primary Care Provider] - Follow up as needed [facility] [Provider Group] - Follow up as needed [facility] [Provider Group] - Follow up as needed
--- NOTE | 2018-06-22 23:02 | EKG REPORT ---
SEVERITY:- OTHERWISE NORMAL ECG - SINUS RHYTHM BORDERLINE RIGHT AXIS DEVIATION : Confirmed by: Tayler Cradoso MD 22-Jun-2018 23:02:08
[2018-06-23] MEDS ORDERED: HALOPERIDOL 5 MG TABLET PO ONE (01:23)
--- NOTE | 2018-06-23 08:40 | PSYCHOLOGICAL NOTE ---
Psych Note - Psych Note Date seen by psych provider: 06/22/18 - TG Time seen by psych provider: 16:00 Psych Note: Met with Patient and her mother. Mother left the room while during the evaluation. Patient presented as confused when asked questions circumstances for admission. When asked about her current medications, she appeared very confused and stated "whatever medications you are giving me." After clarifying question multiple times, referring to medications she took from doctors she went to in the community, not in the hospital, she continued to respond with "whatever you are giving me." Questions regarding her use of methamphetamine did not yield any insight with regard to her last use, the amount, frequency, or method of use, or whether she has ever received any treatment for methamphetamine use in the past. She reported use and preference for heroin and that her mother took her to a suboxone clinic in the past week but "I got nothing from them, not even an appointment." When asked if she vapes, patient admitted that she does. She was unable to report what substances she places in her vape. Overall, she was not able to provide ant useful information and was considered a poor historian at the current time. Collateral obtained from her mother Chasity ([phone]) revealed the patient has a significant drug history and since the of her baby last year, her drug use has increased. Chasity indicated she took the patient to a suboxone cl inic last week and the patient has an appointment scheduled for next week. She stated the patient lives with her and at the current time she feels the patient is unable to care for herself given her ongoing use of drugs and her level of confusion and disorientation. Chasity stated the patient is unable to care for her new born who is reportedly living with her father, however, the patient has free access to her child and is able to take the baby whenever she pleases. Mother reported she would like the patient to receive inpatient treatment for her substance abuse. The limitation to intermediate inpatient substance abuse treatment was explained to Chasity and even IVC detox limitations were explained (i.e. limited facilities, patient's willingness/readiness to go to treatment even though IVC'd secondary to the facility phone interview process.etc.). Patient was alert and oriented to person and place only. Mood vacillated between cooperative, euthymia, irritable, and laughing, all within the context of being confused. Affect was incongruent with mood as she typically smiled despite her mood. She denied suicidal / homicidal ideation, intent or plan. She denied auditory / visual hallucinations and she did not appear to be responding to any internal stimuli. Delusions were absent. Thought processes were evident for slow processing of information, disorganization and illogical connections. Conversational speech was within normal limits for rate, tone, but prosody was irregular. Intellectual abilities were estimated within the average range as evidenced by previous interactions with this patient. Eye contact was well maintained. Attention and concentration was poor. Insight, judgment, and impulse control was currently impaired. Diagnoses: 1. [id number] (F12.221) Severe Cannabis Use Disorder with Cannabis Intoxication Delirium Impression/Plan: Patient was recommended and placed on IVC petition secondary to cannabis related delirium. Patient reported she vapes and it is suspected she has been vaping CBD oil which is known to cause rapid onset psychosis upon completion and cessation of the vape CBD pod. Her symptoms are consistent with delirium as evidenced by impaired attention, poor motor coordination, confusion, reported psychosis by her significant other and her mother, inappropriate affect, memory impairment, impaired awareness, and rapid onset over a brief period. She will continued to be monitored and re-evaluated. Her mother was informed of her IVC Petition status and the initial treatment plan and in agreement. ED Physician in agreement with recommendation and disposition.
--- NOTE | 2018-06-23 09:11 | ER Document Report ---
Doctor's Note Notes: 06/23/18 09:35 Patient seen and evaluated by myself. Patient is a 27-year-old female who was dropped off to the emergency department by her boyfriend for altered mental status. Patient was found to have delirium. Behavioral health saw and evaluated the patient yesterday and believes that the delirium was induced by vaping CBD oils. No issues per nursing overnight. Patient's vital signs are stable. Patient has no complaints in the room. Patient denies any suicidal ideations, homicidal ideations, delusions, hallucinations. She is acting appropriately. Awaiting behavioral health recommendations. 06/23/18 13:12 Behavioral health saw and evaluated the patient. Patient is now acting appropriately. Her psychosis has resolved. She denies any suicidal ideations, homicidal ideations, delusions, hallucinations. Patient has appropriate follow- up on the with [facility]. 06/23/18 13:12
[2018-06-23 13:11] VITALS: BP 114/68
== END 2018-06-23 13:11 | disposition home or self-care (01) ==
LOC: ER 13:00
DX: F12.121 Cannabis abuse with intoxication delirium (principal); F17.200 Nicotine dependence, unspecified, uncomplicated; F15.10 Other stimulant abuse, uncomplicated; F11.10 Opioid abuse, uncomplicated
CPT/HCPCS: 93005; 99285; 36415; 80307 ×4; 84703; 85025; 80053; 81001; 93010; J3490

== ENCOUNTER 2018-07-03 14:35 | Emergency (ER) | payer OTHER ==
[2018-07-03 15:05] VITALS: BP 131/90
[2018-07-03 15:22] LABS: ABSOLUTE EOSINOPHILS # (AUTO) 0.2 10^3/uL (0.0-0.6); ABSOLUTE MONOCYTES (AUTO) 0.7 10^3/uL (0.1-1.4); BASOPHILS % (AUTO) 0.2 % (0-2); EOSINOPHILS % (AUTO) 2.2 % (0-6); HEMATOCRIT 40.8 % (36.0-47.0); HEMOGLOBIN 13.9 g/dL (12.0-15.5); MEAN CORPUSCULAR HEMOGLOBIN 30.5 pg (27.0-33.4); MEAN CORPUSCULAR HGB CONC 34.1 g/dL (32.0-36.0); MEAN CORPUSCULAR VOLUME 90 fl (80-97); MONOCYTES % (AUTO) 9.4 % (3-13); PLATELET COUNT 215 10^3/uL (150-450); RED BLOOD COUNT 4.56 10^6/uL (3.72-5.28); RED CELL DISTRIBUTION WIDTH 13.5 % (11.5-14.0); SEGMENTED NEUTROPHILS % (AUTO) 63.2 % (42-78); TOTAL CELLS COUNTED % (AUTO) 100 %; WHITE BLOOD COUNT 7.9 10^3/uL (4.0-10.5)
[2018-07-03 15:29] LABS: ALANINE AMINOTRANSFERASE 140 U/L (9-52); ALBUMIN 4.9 g/dL (3.5-5.0); ALKALINE PHOSPHATASE 44 U/L (38-126); ANION GAP 11 (5-19); ASPARTATE AMINO TRANSFERASE 42 U/L (14-36); BILIRUBIN,DIRECT 0.2 mg/dL (0.0-0.4); BILIRUBIN,TOTAL 0.5 mg/dL (0.2-1.3); BLOOD UREA NITROGEN 13 mg/dL (7-20); CALCIUM 9.6 mg/dL (8.4-10.2); CARBON DIOXIDE 27 mmol/L (22-30); CHLORIDE 103 mmol/L (98-107); GLUCOSE 96 mg/dL (75-110); POTASSIUM 3.9 mmol/L (3.6-5.0); SODIUM 140.5 mmol/L (137-145); TOTAL PROTEIN 7.6 g/dL (6.3-8.2)
[2018-07-03 15:31] LABS: ACETAMINOPHEN < 10 ug/mL (10-30); ALCOHOL < 10 mg/dL (NONE DETECTED); SALICYLATE < 1.0 mg/dL (2.0-20.0)
[2018-07-03 16:27] LABS: APPEARANCE,URINE SLIGHTLY-CLOUDY; BILIRUBIN,URINE NEGATIVE (NEGATIVE); COLOR,URINE YELLOW; GLUCOSE, URINE NEGATIVE (NEGATIVE); KETONES,URINE NEGATIVE (NEGATIVE); LEUKOCYTE ESTERASE,URINE TRACE (NEGATIVE); NITRITE,URINE NEGATIVE (NEGATIVE); PROTEIN,URINE NEGATIVE (NEGATIVE)
[2018-07-03 16:39] LABS: URINE AMPHETAMINES SCREEN NEGATIVE; URINE BARBITURATES SCREEN NEGATIVE; URINE BENZODIAZEPINES SCREEN NEGATIVE; URINE COCAINE SCREEN NEGATIVE; URINE MARIJUANA (THC) SCREEN NEGATIVE; URINE METHADONE SCREEN NEGATIVE; URINE PHENCYCLIDINE SCREEN NEGATIVE
--- NOTE | 2018-07-03 17:50 | ER Document Report ---
ED General <MARINA REYES - Last Filed: 07/03/18 18:03> - General TRAVEL OUTSIDE OF THE [place] IN LAST 30 DAYS: No <DOUG CURTIS - Last Filed: 07/03/18 23:45> - General Chief Complaint: Psych Problem Stated Complaint: IVC Time Seen by Provider: 07/03/18 15:03 Notes: Patient is a 27-year-old female with history of anxiety and methamphetamine abuse that presents to the emergency department for chief complaint of anxiety, and out of meds currently. Patient seems somewhat confused, I think she may be , she states she is currently having some vaginal bleeding and is concerned about that, and she is been feeling anxious, she is a poor historian, and unable to provide any significant history at this time, she does have a history of methamphetamine abuse, that has led to some cognitive impairment. Her significant other appears concern for her, and they do have an appointment to [facility], but thought she may need medication sooner. She is not currently taking any medications, but has been on medications in the past for her anxiety and depression. She denies any suicidal or homicidal thoughts at this time. Denies any other complaints. Denies any recent illnesses, chest pain, shortness of breath, nausea or vomiting. Past Medical History: Anxiety, methamphetamine abuse Past Surgical History: Denies recent or pertinent surgical history Social History: Denies current tobacco, alcohol use, denies current illicit drug use, history of methamphetamine abuse. Family History: Reviewed and noncontributory for presenting illness Allergies: Reviewed, see documented allergy list. REVIEW OF SYSTEMS: Other than noted above, the 12 point review of systems was reviewed with the patient and were negative, all pertinent findings are included in the HPI. PHYSICAL EXAMINATION: Vital signs reviewed, nursing noted reviewed. GENERAL: Well-appearing, well-nourished and in no acute distress. HEAD: Atraumatic, normocephalic. EYES: Eyes appear normal, extraocular movements intact, sclera anicteric, co njunctiva are normal. ENT: nares patent, oropharynx clear without exudates. Moist mucous membranes. NECK: Normal range of motion, supple without lymphadenopathy LUNGS: Breath sounds clear to auscultation bilaterally and equal. No wheezes rales or rhonchi. HEART: Heart rate mildly tachycardic, regular rhythm. ABDOMEN: Soft, nontender, normoactive bowel sounds. No rebound, guarding, or rigidity. No masses appreciated. EXTREMITIES: Nontender, good range of motion, no pitting or edema. NEUROLOGICAL: No focal neurological deficits. Moves all extremities spontaneously Motor and sensory grossly intact on exam. PSYCH: Flat affect SKIN: Warm, Dry, normal turgor, no rashes or lesions noted on exposed skin (DOUG CURTIS) - Related Data Allergies/Adverse Reactions: No Known Allergies Allergy (Verified 06/22/18 13:16) Past Medical History - Social History Smoking Status: Current Every Day Smoker Frequency of alcohol use: Heavy Drug Abuse: Prescription drugs Family History: Reviewed & Not Pertinent Patient has suicidal ideation: Yes Patient has homicidal ideation: No Renal/ Medical History: Denies: Hx Peritoneal Dialysis Psychiatric Medical History: Reports: Hx Anxiety, Hx Attention Deficit Hyperactivity Disorder, Hx Bipolar Disorder, Hx Depression, Hx Personality Disorder - Immunizations Hx Diphtheria, Pertussis, Tetanus Vaccination: Yes <DOUG CURTIS - Last Filed: 07/03/18 23:45> - Vital signs Vitals: Pulse Resp BP Pulse Ox 93 18 131/90 H 100 07/03/18 14:44 07/03/18 14:44 07/03/18 14:44 07/03/18 14:44 Course - Laboratory Result Diagrams: 07/03/18 15:03 07/03/18 15:03 <MARINA REYES - Last Filed: 07/03/18 18:03> - Laboratory Result Diagrams: 07/03/18 15:03 07/03/18 15:03 <DOUG CURTIS - Last Filed: 07/03/18 23:45> - Re-evaluation Re-evalutation: Patient seen and examined, vital signs reviewed. Medical screening testing was ordered including bloodwork, EKG, and toxicology. Results of testing were reviewed. Testing demonstrated unremarkable blood work, negative tox screen, and urinalysis, hCG negative. Patient has been stable from a hemodynamic standpoint. At this point I feel that the patient is medically cleared and can be further evaluated from a psychiatric standpoint for final disposition from the emergency department. Patient updated on plan of care. After discussion with the behavioral health team, patient appears to be at her baseline, she is known to this department, and our behavioral health team, and she does have scheduled follow-up, with outpatient psychiatry and psychology tomorrow, we will not institute any new medications at this time, as she is being seen tomorrow for further evaluation, and I do not feel she is an immediate threat to herself or others at this time, she appears calm, answers questions, does have a flat affect, but otherwise denies suicidal or homicidal ideation. Laboratory 07/03/18 07/03/18 07/03/18 15:03 15:03 15:03 WBC 7.9 RBC 4.56 Hgb 13.9 Hct 40.8 MCV 90 MCH 30.5 MCHC 34.1 RDW 13.5 Plt Count 215 Seg Neutrophils % 63.2 Lymphocytes % 25.0 Monocytes % 9.4 Eosinophils % 2.2 Basophils % 0.2 Absolute Neutrophils 5.0 Absolute Lymphocytes 2.0 Absolute Monocytes 0.7 Absolute Eosinophils 0.2 Absolute Basophils 0.0 Sodium 140.5 Potassium 3.9 Chloride 103 Carbon Dioxide 27 Anion Gap 11 BUN 13 Creatinine 0.68 Est GFR ( Amer) > 60 Est GFR (Non-Af Amer) > 60 Glucose 96 Calcium 9.6 Total Bilirubin 0.5 Direct Bilirubin 0.2 Neonat Total Bilirubin Not Reportable Neonat Direct Bilirubin Not Reportable Neonat Indirect Bili Not Reportable AST 42 H ALT 140 H Alkaline Phosphatase 44 Total Protein 7.6 Albumin 4.9 Serum HCG, Qual NEGATIVE Urine Color Urine Appearance Urine pH Ur Specific [place] Urine Protein Urine Glucose (UA) Urine Ketones Urine Blood Urine Nitrite Urine Bilirubin Urine Urobilinogen Ur Leukocyte Esterase Urine WBC (Auto) Urine RBC (Auto) Squamous Epi Cells Auto Urine Mucus (Auto) Urine Ascorbic Acid Salicylates < 1.0 L Urine Opiates Screen Urine Methadone Screen Acetaminophen < 10 L Ur Barbiturates Screen Ur Phencyclidine Scrn Ur Amphetamines Screen U Benzodiazepines Scrn Urine Cocaine Screen U Marijuana (THC) Screen Serum Alcohol < 10 07/03/18 07/03/18 16:00 16:00 WBC RBC Hgb Hct MCV MCH MCHC RDW Plt Count Seg Neutrophils % Lymphocytes % Monocytes % Eosinophils % Basophils % Absolute Neutrophils Absolute Lymphocytes Absolute Monocytes Absolute Eosinophils Absolute Basophils Sodium Potassium Chloride Carbon Dioxide Anion Gap BUN Creatinine Est GFR ( Amer) Est GFR (Non-Af Amer) Glucose Calcium Total Bilirubin Direct Bilirubin Neonat Total Bilirubin Neonat Direct Bilirubin Neonat Indirect Bili AST ALT Alkaline Phosphatase Total Protein Albumin Serum HCG, Qual Urine Color YELLOW Urine Appearance SLIGHTLY-CLOUDY Urine pH 5.0 Ur Specific [place] 1.020 Urine Protein NEGATIVE Urine Glucose (UA) NEGATIVE Urine Ketones NEGATIVE Urine Blood LARGE H Urine Nitrite NEGATIVE Urine Bilirubin NEGATIVE Urine Urobilinogen 2.0 H Ur Leukocyte Esterase TRACE H Urine WBC (Auto) 5 Urine RBC (Auto) 9 Squamous Epi Cells Auto 5 Urine Mucus (Auto) MOD Urine Ascorbic Acid NEGATIVE Salicylates Urine Opiates Screen NEGATIVE Urine Methadone Screen NEGATIVE Acetaminophen Ur Barbiturates Screen NEGATIVE Ur Phencyclidine Scrn NEGATIVE Ur Amphetamines Screen NEGATIVE U Benzodiazepines Scrn NEGATIVE Urine Cocaine Screen NEGATIVE U Marijuana (THC) Screen NEGATIVE Serum Alcohol (DOUG CURTIS) - Vital Signs Vital signs: Temp Pulse Resp BP Pulse Ox 93 18 131/90 H 100 07/03/18 14:44 07/03/18 14:44 07/03/18 14:44 07/03/18 14:44 - Laboratory Laboratory results interpreted by me: 07/03/18 07/03/18 15:03 16:00 AST 42 H ALT 140 H Urine Blood LARGE H Urine Urobilinogen 2.0 H Ur Leukocyte Esterase TRACE H Salicylates < 1.0 L Acetaminophen < 10 L - EKG Interpretation by Me Additional EKG results interpreted by me: EKG demonstrates sinus rhythm with a ventricular rate of 73 bpm, normal axis, normal intervals, no evidence of acute ischemia in this EKG. (DOUG CURTIS) Discharge <MARINA REYES - Last Filed: 07/03/18 18:03> <DOUG CURTIS - Last Filed: 07/03/18 23:45> - Discharge Clinical Impression: Methamphetamine abuse in remission Condition: Stable Disposition: HOME, SELF-CARE Additional Instructions: You have been evaluated and assessed at [facility] Emergency Department by both the medical and behavioral health teams after presenting for and are now deemed appropriate for discharge. While in the ED, you received an initial medical screening, lab work, EKG, medications, direct staff observation, clinical evaluation, physician assessment, and outpatient resources. You were cleared from both services and behavioral health recommendations are to follow up with [facility] tomorrow for medication management appointment. Resources were provided to you for mobile crisis services. You are encouraged to utilize mobile crisis services 24/hrs/day as needed and follow up with your outpatient mental health provider and maintain compliance with your prescribed medication. Anxiety The physician feels that some of your health problems are being caused by anxiety. Anxiety affects your health in many ways. Anxiety alone can cause palpitations, sweats, chest pains, abdominal pains, shortness of breath, and headaches. It contributes to ulcer disease, high blood pressure, irritable bowel syndrome, and has been shown to cause flare-ups of many other diseases. Anxiety is not a simple disorder to treat. If the anxiety is due to recent life stresses, you may simply need time to "work through" the changes. If the anxiety is due to an underlying unhappiness with yourself or due to psychiatric disturbance, professional help will be needed. Your physician can refer you for further help if needed. Anti-anxiety medication is occasionally given if the stress is acute or if you are having trouble sleeping. Chronic or frequent use of these medications is not a good idea because the body becomes reliant on it, preventing you from dealing with life's normal stresses. Bipolar Disorder Bipolar disorder is also called manic-depressive disorder. Depression alternates with brain hyperactivity called ottoniel. Each phase lasts from several days to a few weeks. We don't know exactly what causes bipolar disorder, but it's treatable. During the "manic phase," you may feel elated and energetic. You may have racing thoughts, rapid speech, increased activity, and grandiose ideas. During this time, you may not realize how poor your judgement is. Inappropriate spending, drug abuse, excessive alcohol use, marriage problems, and irresponsible sexual behavior are common during the manic phase. During the "depressive phase," you might feel depressed, guilty, worthless, fatigued, and unable to concentrate. You might have thoughts of suicide. Good treatments are available for bipolar disorder. [place] is a classic drug for bipolar disorder, and is still often useful. If the manic phase is very mild, an antidepressant alone can be prescribed. If the manic phase is very severe, an antipsychotic medicine (such as Haldol) may be needed. The treatment must be matched to your symptoms, so it's important to work closely with your psychiatric care provider. Contact your physician, the hospital emergency center, crisis line, or your counsellor if you are losing control or having self-destructive thoughts. Referrals: [facility] [Provider Group] - Follow up as needed
--- NOTE | 2018-07-03 18:03 | PSYCHOLOGICAL NOTE ---
Psych Note - Psych Note Date seen by psych provider: 07/03/18 Time seen by psych provider: 14:35 Psych Note: Reason for consult: Contact Permissions: Patient is a 27 yo female presenting to the ED with IFS and under IVC for concerns of bizarre behavior. Chart review shows patient has multiple prior visits for substance abuse (methamphetamine, cocaine, heroin) with psychosis and last was in 2017. Patient is pacing in her room appearing anxious and looking over Police District Switchboard Operator's shoulder upon arrival. She endorses anxiety and relays that the's looking for her boyfriend and discloses that she thinks she's . Patient agrees to provide a urine sample but is worried about missing her boyfriend who has stepped out to get coffee. After lab results are posted and negative for all substances, Police District Switchboard Operator re-engages with patient who is calmer with boyfriend at bedside. She agrees to speak privately and is oriented to person, place, and time. She believes she's in the ED due to her anxiety and does not recall any confusion earlier in the day. Patient relays that her anxiety has decreased since being in the ED and her S/O at bedside and does appear to be calmer aeb smiling, making good eye contact, and engaging in conversation with full sentences. Patient asks if she's , was informed that she was not, and then relays that she wants to go home. She denies SI, HI, and AV/H, does not appear to be responding to internal stimuli, and no delusions are noted. Patient gives verbal consent to speak freely with her S/O. Juan J, S/O and the father of her two children relays that he's her primary caregiver, that she's not been the same since meth use/abuse "not all there" and that she's at her baseline now. Her anxiety has been constant recently. He relays that [facility] has helped her in the past. He worried aloud that though she's not been using for sometime, she manipulates when in her mother's presence and gets her mother to take her to find/get drugs. He worries that she may have used when mom took her to her last appointment at [facility] for [facility]. He relays that patient and her mother did not stay at [facility] to follow through with medication management and he's not sure why. He has contacted [facility] for assistance with higher level of care as he's realizing that he cannot keep her with him at all times. He has been taking patient to work with him and will continue to do so to ensure her safety and sobriety. Valentin Isabel of IFS reports she was picked up from the health department which she thought was [facility]. Patient thought she was 25 but is actually 27 and she had difficulty remembering her 2 children's names, and thinks her fiance is her father. She became agitated when corrected about her age. Her affect was labile tearful then "face froze for 5 minutes" affective flattening, then angry then flat again. She was at [facility] on 06/28/18 and dx with Bipolar Disorder depressive, PTSD, Opioid Disorder, severe. [facility] has dx of Delusional Disorder and Opioid Dependence. Patient went missing for 5 days and her s/o reports concern that she was using meth again. Patient is alert and oriented x 3. Mood is anxious at first then better with mood congruent affect. Patient denies SI, HI, and AV/H, does not appear to be responding to internal stimuli, and no delusions were noted. Conversational speech was WNL for rate, tone, and prosody. Eye contact was well maintained. Thought processes were linear and organized later in the day when anxiety decreased. Intellectual abilities were estimated to be impaired. Attention/concentration was WNL while, insight, judgment, and impulse control were poor. Diagnosis: 1. 304.20 (F14.20) Cocaine Use Disorder, Moderate, history of 2. 304.20 (F15.20) Methamphetamine Use Disorder, Moderate, history of 3. 304.00 (F11.20) Heroin Use Disorder, Moderate, history of 4. Rule Out Bipolar Disorder Medication recommendations as per psychiatric provider, Dr. Molina are as follows: No medication recommendations at this time Patient is psychiatrically clear from acute psychiatric services and recommended to rescind IVC due to risk of harm to self or others aeb Patient endorses SI, HI, and AV/H, does not appear to be responding to internal stimuli, and no delusions were noted. Discharge to home/self-care with Juan J who verbalizes he will ensure patient presents to [facility] in the morning for follow up medication management appointment. Patient is a 27 yo female with a significant hx of methamphetamine use/abuse who has likely permanent cognitive impairment resulting from substance use. S/O reports patient is at baseline and [employer] Switchboard Operator has observed patient's disposition to improve throughout the day with confusion clearing with anxiety decreasing. Patient and her S/O/Primary caregiver verbalized intent to follow through with outpatient MH care at [facility] tomorrow. Consulted Dr. Goodman in the care and management of this patient and ED physician who is in agreement with disposition and recommendation. F
--- NOTE | 2018-07-03 19:33 | EKG REPORT ---
SEVERITY:- OTHERWISE NORMAL ECG - SINUS ARRHYTHMIA, RATE 62-88 BORDERLINE RIGHT AXIS DEVIATION : Confirmed by: Sweetie Brewer 03-Jul-2018 19:32:18
== END 2018-07-03 18:25 | disposition home or self-care (01) ==
LOC: ER 14:35
DX: F15.21 Other stimulant dependence, in remission (principal); F41.9 Anxiety disorder, unspecified; F17.200 Nicotine dependence, unspecified, uncomplicated
CPT/HCPCS: 36415; 80053; 80307; 81001; 84703; 85025; 93005; 93010; 99285

== ENCOUNTER 2018-11-14 13:17 | Emergency (ER) | payer OTHER ==
[2018-11-14 13:33] LABS: ABSOLUTE EOSINOPHILS # (AUTO) 0.1 10^3/uL (0.0-0.6); ABSOLUTE LYMPHOCYTES (AUTO) 1.7 10^3/uL (0.5-4.7); ABSOLUTE MONOCYTES (AUTO) 0.6 10^3/uL (0.1-1.4); ABSOLUTE NEUT (AUTO) 4.5 10^3/uL (1.7-8.2); BASOPHILS % (AUTO) 0.4 % (0-2); EOSINOPHILS % (AUTO) 1.4 % (0-6); HEMOGLOBIN 12.5 g/dL (12.0-15.5); LYMPHOCYTES % (AUTO) 24.4 % (13-45); MEAN CORPUSCULAR HEMOGLOBIN 30.9 pg (27.0-33.4); MEAN CORPUSCULAR HGB CONC 33.7 g/dL (32.0-36.0); MEAN CORPUSCULAR VOLUME 92 fl (80-97); MONOCYTES % (AUTO) 8.9 % (3-13); PLATELET COUNT 190 10^3/uL (150-450); RED BLOOD COUNT 4.04 10^6/uL (3.72-5.28); RED CELL DISTRIBUTION WIDTH 13.3 % (11.5-14.0); SEGMENTED NEUTROPHILS % (AUTO) 64.9 % (42-78); TOTAL CELLS COUNTED % (AUTO) 100 %; WHITE BLOOD COUNT 6.9 10^3/uL (4.0-10.5)
[2018-11-14 14:05] LABS: ALANINE AMINOTRANSFERASE 132 U/L (9-52); ALBUMIN 4.5 g/dL (3.5-5.0); ALCOHOL 48 mg/dL (NONE DETECTED); ALKALINE PHOSPHATASE 48 U/L (38-126); ANION GAP 13 (5-19); ASPARTATE AMINO TRANSFERASE 72 U/L (14-36); BILIRUBIN,DIRECT 0.2 mg/dL (0.0-0.4); BILIRUBIN,TOTAL 0.5 mg/dL (0.2-1.3); BLOOD UREA NITROGEN 10 mg/dL (7-20); CALCIUM 9.9 mg/dL (8.4-10.2); CARBON DIOXIDE 21 mmol/L (22-30); CHLORIDE 108 mmol/L (98-107); GLUCOSE 98 mg/dL (75-110); POTASSIUM 3.9 mmol/L (3.6-5.0); SODIUM 142.4 mmol/L (137-145); TOTAL PROTEIN 7.8 g/dL (6.3-8.2)
[2018-11-14 14:13] LABS: ACETAMINOPHEN < 10 ug/mL (10-30); SALICYLATE < 1.0 mg/dL (2.0-20.0)
[2018-11-14 14:25] LABS: APPEARANCE,URINE CLEAR; BILIRUBIN,URINE NEGATIVE (NEGATIVE); COLOR,URINE STRAW; GLUCOSE, URINE NEGATIVE (NEGATIVE); KETONES,URINE NEGATIVE (NEGATIVE); LEUKOCYTE ESTERASE,URINE NEGATIVE (NEGATIVE); NITRITE,URINE NEGATIVE (NEGATIVE); PROTEIN,URINE NEGATIVE (NEGATIVE); URINE SPECIFIC GRAVITY 1.004; UROBILINOGEN,URINE NEGATIVE mg/dL (<2.0)
[2018-11-14 14:47] LABS: URINE BENZODIAZEPINES SCREEN UNCONFIRMED POSITIVE; URINE MARIJUANA (THC) SCREEN NEGATIVE; URINE METHADONE SCREEN NEGATIVE; URINE PHENCYCLIDINE SCREEN NEGATIVE
[2018-11-14 14:54] LABS: URINE AMPHETAMINES SCREEN NEGATIVE
[2018-11-14 14:55] LABS: URINE BARBITURATES SCREEN NEGATIVE
[2018-11-14 14:56] LABS: URINE COCAINE SCREEN NEGATIVE
--- NOTE | 2018-11-14 17:05 | ER Document Report ---
ED General - General Chief Complaint: Psych Problem Stated Complaint: PSYCH EVAL Time Seen by Provider: 11/14/18 14:52 Notes: Patient is a 28-year-old female with history of depression, anxiety and substance abuse that presents to the emergency department for chief complaint of suicidal ideation, hallucinations and delusions. Mother provided most of the history, apparently she has been worse recently, talking to herself, talking nonsensically and tangentially, and apparently has expressed suicidal ideation. The patient will not elaborate at this time, and is rather flat, does not want a answer any further questions. She states she is "fine", and does not think anything is wrong. Her family seems to be rather concerned about her, she has had issues like this in the past, and has been admitted to inpatient psychiatric facilities in the past as well. She does have a strong history of substance abuse, but denies any recent use. Past Medical History: Depression, anxiety, substance abuse disorder, bipolar disorder Past Surgical History: Denies recent or pertinent surgical history Social History: Admits to smoking cigarettes daily, denies alcohol use, denies any current drug use. Family History: Reviewed and noncontributory for presenting illness Allergies: Reviewed, see documented allergy list. REVIEW OF SYSTEMS: Other than noted above, the 12 point review of systems was reviewed with the patient and were negative, all pertinent findings are included in the HPI. PHYSICAL EXAMINATION: Vital signs reviewed, nursing noted reviewed. GENERAL: Well-appearing, well-nourished and in no acute distress. HEAD: Atraumatic, normocephalic. EYES: Eyes appear normal, extraocular movements intact, sclera anicteric, conjunctiva are normal. ENT: nares patent, oropharynx clear without exudates. Moist mucous membranes. NECK: Normal range of motion, supple without lymphadenopathy LUNGS: Breath sounds clear to auscultation bilaterally and equal. No wheezes rales or rhonchi. HEART: Regular rate and rhythm without murmurs ABDOMEN: Soft, nontender, normoactive bowel sounds. No rebound, guarding, or rigidity. No masses appreciated. EXTREMITIES: Nontender, good range of motion, no pitting or edema. NEUROLOGICAL: No focal neurological deficits. Moves all extremities spontaneously Motor and sensory grossly intact on exam. PSYCH: Flat affect, mood appears normal SKIN: Warm, Dry, normal turgor, no rashes or lesions noted on exposed skin TRAVEL OUTSIDE OF THE [place] IN LAST 30 DAYS: No - Related Data Allergies/Adverse Reactions: No Known Allergies Allergy (Verified 06/22/18 13:16) Past Medical History - Social History Smoking Status: Current Every Day Smoker Frequency of alcohol use: None Drug Abuse: None Family History: Reviewed & Not Pertinent Patient has suicidal ideation: Yes Patient has homicidal ideation: No Renal/ Medical History: Denies: Hx Peritoneal Dialysis Psychiatric Medical History: Reports: Hx Anxiety, Hx Attention Deficit Hyperactivity Disorder, Hx Bipolar Disorder, Hx Depression, Hx Personality Disorder - Immunizations Hx Diphtheria, Pertussis, Tetanus Vaccination: Yes Physical Exam - Vital signs Vitals: Temp Pulse Resp BP Pulse Ox 97.5 F 72 16 128/69 H 99 11/14/18 13:33 11/14/18 13:33 11/14/18 13:33 11/14/18 13:33 11/14/18 13:33 Course - Re-evaluation Re-evalutation: Patient seen and examined, vital signs reviewed. Medical screening testing was ordered including bloodwork, EKG, and toxicology. Results of testing were reviewed. Testing demonstrated unremarkable work-up, similar to prior. Patient has been stable from a hemodynamic standpoint. At this point I feel that the patient is medically cleared and can be further evaluated from a psychiatric standpoint for final disposition from the emergency department. Patient updated on plan of care. Patient was accepted to inpatient psychiatric facility, plan of care discussed, and was agreeable. Patient was seen and examined prior to transport and was stable. Laboratory 11/14/18 11/14/18 11/14/18 13:15 13:15 13:15 WBC 6.9 RBC 4.04 Hgb 12.5 Hct 37.0 MCV 92 MCH 30.9 MCHC 33.7 RDW 13.3 Plt Count 190 Seg Neutrophils % 64.9 Lymphocytes % 24.4 Monocytes % 8.9 Eosinophils % 1.4 Basophils % 0.4 Absolute Neutrophils 4.5 Absolute Lymphocytes 1.7 Absolute Monocytes 0.6 Absolute Eosinophils 0.1 Absolute Basophils 0.0 Sodium 142.4 Potassium 3.9 Chloride 108 H Carbon Dioxide 21 L Anion Gap 13 BUN 10 Creatinine 0.61 Est GFR ( Amer) > 60 Est GFR (Non-Af Amer) > 60 Glucose 98 Calcium 9.9 Total Bilirubin 0.5 Direct Bilirubin 0.2 Neonat Total Bilirubin Not Reportable Neonat Direct Bilirubin Not Reportable Neonat Indirect Bili Not Reportable AST 72 H ALT 132 H Alkaline Phosphatase 48 Total Protein 7.8 Albumin 4.5 Serum HCG, Qual NEGATIVE Urine Color Urine Appearance Urine pH Ur Specific [place] Urine Protein Urine Glucose (UA) Urine Ketones Urine Blood Urine Nitrite Urine Bilirubin Urine Urobilinogen Ur Leukocyte Esterase Squamous Epi Cells Auto Urine Ascorbic Acid Salicylates < 1.0 L Urine Opiates Screen Urine Methadone Screen Acetaminophen < 10 L Ur Barbiturates Screen Ur Phencyclidine Scrn Ur Amphetamines Screen U Benzodiazepines Scrn Urine Cocaine Screen U Marijuana (THC) Screen Serum Alcohol 48 11/14/18 11/14/18 14:00 14:00 WBC RBC Hgb Hct MCV MCH MCHC RDW Plt Count Seg Neutrophils % Lymphocytes % Monocytes % Eosinophils % Basophils % Absolute Neutrophils Absolute Lymphocytes Absolute Monocytes Absolute Eosinophils Absolute Basophils Sodium Potassium Chloride Carbon Dioxide Anion Gap BUN Creatinine Est GFR ( Amer) Est GFR (Non-Af Amer) Glucose Calcium Total Bilirubin Direct Bilirubin Neonat Total Bilirubin Neonat Direct Bilirubin Neonat Indirect Bili AST ALT Alkaline Phosphatase Total Protein Albumin Serum HCG, Qual Urine Color STRAW Urine Appearance CLEAR Urine pH 7.0 Ur Specific [place] 1.004 Urine Protein NEGATIVE Urine Glucose (UA) NEGATIVE Urine Ketones NEGATIVE Urine Blood MODERATE H Urine Nitrite NEGATIVE Urine Bilirubin NEGATIVE Urine Urobilinogen NEGATIVE Ur Leukocyte Esterase NEGATIVE Squamous Epi Cells Auto <1 Urine Ascorbic Acid NEGATIVE Salicylates Urine Opiates Screen NEGATIVE Urine Methadone Screen NEGATIVE Acetaminophen Ur Barbiturates Screen NEGATIVE Ur Phencyclidine Scrn NEGATIVE Ur Amphetamines Screen NEGATIVE U Benzodiazepines Scrn UNCONFIRMED POSITIVE Urine Cocaine Screen NEGATIVE U Marijuana (THC) Screen NEGATIVE Serum Alcohol - Vital Signs Vital signs: Temp Pulse Resp BP Pulse Ox 98.1 F 72 16 126/60 H 99 11/14/18 17:15 11/14/18 17:15 11/14/18 17:15 11/14/18 17:15 11/14/18 17:15 - Laboratory Result Diagrams: 11/14/18 13:15 11/14/18 13:15 Laboratory results interpreted by me: 11/14/18 11/14/18 13:15 14:00 Chloride 108 H Carbon Dioxide 21 L AST 72 H ALT 132 H Urine Blood MODERATE H Salicylates < 1.0 L Acetaminophen < 10 L Discharge - Discharge Clinical Impression: Suicidal ideation Condition: Stable Disposition: PSYCH HOSP/UNIT
[2018-11-14 18:50] VITALS: BP 126/60
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
--- NOTE | 2018-11-14 22:21 | EKG REPORT ---
SEVERITY:- OTHERWISE NORMAL ECG - SINUS ARRHYTHMIA, RATE 54-79 BORDERLINE RIGHT AXIS DEVIATION : Confirmed by: Tayler Cardoso MD 14-Nov-2018 22:20:03
== END 2018-11-14 17:40 ==
LOC: ER 13:17
DX: R45.851 Suicidal ideations (principal); F22 Delusional disorders; F17.210 Nicotine dependence, cigarettes, uncomplicated
CPT/HCPCS: 36415; 80053; 80307; 81001; 84703; 85025; 93005; 93010; 99285

== ENCOUNTER 2019-02-13 05:02 | Emergency (ER) | payer MEDICAID, OTHER ==
[2019-02-13] MEDS ORDERED: LORAZEPAM INJ 2 MG/1 ML VIAL ONE (05:37)
[2019-02-13] MEDS ORDERED: LORAZEPAM INJ 2 MG/1 ML VIAL IV ONE (05:39)
[2019-02-13] MEDS ORDERED: ZIPRASIDONE MESYLATE INJ/PF 20 MG SDV IM ONE (05:44)
[2019-02-13 05:49] LABS: HEMATOCRIT 34.4 % (36.0-47.0); HEMOGLOBIN 11.7 g/dL (12.0-15.5); MEAN CORPUSCULAR HEMOGLOBIN 30.6 pg (27.0-33.4); MEAN CORPUSCULAR HGB CONC 34.1 g/dL (32.0-36.0); MEAN CORPUSCULAR VOLUME 90 fl (80-97); PLATELET COUNT 239 10^3/uL (150-450); RED BLOOD COUNT 3.83 10^6/uL (3.72-5.28); RED CELL DISTRIBUTION WIDTH 13.4 % (11.5-14.0)
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
[2019-02-13 06:03] LABS: ALBUMIN 4.5 g/dL (3.5-5.0); ALKALINE PHOSPHATASE 51 U/L (38-126); ANION GAP 13 (5-19); ASPARTATE AMINO TRANSFERASE 68 U/L (14-36); BILIRUBIN,DIRECT 0.3 mg/dL (0.0-0.4); BILIRUBIN,TOTAL 0.6 mg/dL (0.2-1.3); BLOOD UREA NITROGEN 13 mg/dL (7-20); CALCIUM 9.2 mg/dL (8.4-10.2); CARBON DIOXIDE 20 mmol/L (22-30); CHLORIDE 101 mmol/L (98-107); POTASSIUM 4.2 mmol/L (3.6-5.0); TOTAL PROTEIN 7.9 g/dL (6.3-8.2)
[2019-02-13 06:07] LABS: GLUCOSE 62 mg/dL (75-110)
[2019-02-13 06:08] LABS: ACETAMINOPHEN < 10 ug/mL (10-30); ALCOHOL < 10 mg/dL (NONE DETECTED); SALICYLATE < 1.0 mg/dL (2.0-20.0)
[2019-02-13] MEDS ORDERED: DEXTROSE 50%-WATER 25 GM/50 ML DISP.SYRIN IV ONE ×2 (06:08)
[2019-02-13 06:24] LABS: WHITE BLOOD COUNT 21.3 10^3/uL (4.0-10.5)
[2019-02-13 06:25] LABS: ABSOLUTE LYMPHOCYTES# (MANUAL) 2.1 10^3/uL (0.5-4.7); ABSOLUTE MONOCYTES # (MANUAL) 1.9 10^3/uL (0.1-1.4); BAND NEUTROPHILS % (MANUAL) 1 % (3-5); BASOPHILS % (MANUAL) 0 % (0-2); EOSINOPHILS % (MANUAL) 0 % (0-6); LYMPHOCYTES % (MANUAL) 10 % (13-45); MONOCYTES % (MANUAL) 9 % (3-13); SEGMENTED NEUTROPHILS % (MAN) 80 % (42-78); TOTAL CELLS COUNTED 100
[2019-02-13 06:26] LABS: PLATELET COMMENT ADEQUATE; RBC MORPHOLOGY COMMENT NORMO-CYTIC/CHROMIC
[2019-02-13] MEDS ORDERED: NORMAL SALINE 1000 ML 1,000 ML IV ONE (06:46)
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
[2019-02-13] MEDS ORDERED: LIDOCAINE 1%/EPINEPHRINE INJ 20 ML VIAL INJ ONE (08:05)
[2019-02-13 08:13] LABS: AMORPHOUS SEDIMENT,URINE TRACE /HPF; APPEARANCE,URINE SLIGHTLY-CLOUDY; BILIRUBIN,URINE NEGATIVE (NEGATIVE); COLOR,URINE YELLOW; GLUCOSE, URINE 150 mg/dL (NEGATIVE); KETONES,URINE 20 mg/dL (NEGATIVE); LEUKOCYTE ESTERASE,URINE NEGATIVE (NEGATIVE); NITRITE,URINE NEGATIVE (NEGATIVE); PROTEIN,URINE 30 mg/dL (NEGATIVE); URINE SPECIFIC GRAVITY 1.014; UROBILINOGEN,URINE NEGATIVE mg/dL (<2.0)
[2019-02-13 08:21] LABS: URINE BARBITURATES SCREEN NEGATIVE; URINE BENZODIAZEPINES SCREEN UNCONFIRMED POSITIVE; URINE COCAINE SCREEN UNCONFIRMED POSITIVE; URINE MARIJUANA (THC) SCREEN NEGATIVE; URINE METHADONE SCREEN NEGATIVE; URINE PHENCYCLIDINE SCREEN NEGATIVE
--- NOTE | 2019-02-13 09:28 | RADIOLOGY REPORT (SQ) ---
EXAM DESCRIPTION: CT HEAD WITHOUT COMPLETED DATE/TIME: 02/13/2019 9:15 am REASON FOR STUDY: Head injury COMPARISON: 09/03/2014 TECHNIQUE: Axial images acquired through the brain without intravenous contrast. Images reviewed wi th bone, brain and subdural windows. Additional sagittal and coronal reconstructions were generated. Images stored on PACS. All CT scanners at this facility use dose modulation, iterative reconstruction, and/or weight based d osing when appropriate to reduce radiation dose to as low as reasonably achievable (ALARA). [facility]: Dose Right [facility]: CareDose [facility]: Dose Right [facility]: Teradose 4D [facility]: Smart Technologies RADIATION DOSE: CT Rad equipment meets quality standard of care and radiation dose reduction techniq ues were employed. CTDIvol: 48.6 mGy. DLP: 905 mGy-cm. mGy. LIMITATIONS: None. FINDINGS: VENTRICLES: Normal size and contour. CEREBRUM: No masses. No hemorrhage. No midline shift. No evidence for acute infarction. Normal gra y/white matter differentiation. No areas of low density in the white matter. CEREBELLUM: No masses. No hemorrhage. No alteration of density. No evidence for acute infarction. EXTRAAXIAL SPACES: No fluid collections. No masses. ORBITS AND GLOBE: No intra- or extraconal masses. Normal contour of globe without masses. CALVARIUM: No fracture. PARANASAL SINUSES: No fluid or mucosal thickening. SOFT TISSUES: No mass or hematoma. OTHER: No other significant finding. IMPRESSION: No acute intracranial pathology. EVIDENCE OF ACUTE STROKE: NO. COMMENT: Quality ID # [id number]: Final reports with documentation of one or more dose reduction techniques (e.g., Automated exposure control, adjustment of the mA and/or kV according to patient size, use of iterative reconstruction technique) TECHNICAL DOCUMENTATION: JOB ID: [id number] 1919 [employer]- All Rights Reserved Reading location - IP/workstation name: [email or web address]
--- NOTE | 2019-02-13 10:20 | RADIOLOGY REPORT (SQ) ---
EXAM DESCRIPTION: U/S [id number] TRNABD 1GES W/ODOP COMPLETED DATE/TIME: 02/13/2019 10:08 am REASON FOR STUDY: preg/pain COMPARISON: None. TECHNIQUE: Transabdominal static and realtime grayscale images acquired of the pelvis. Additional se lected spectral and color Doppler images recorded. All images stored on PACs. bHCG: Not available. CLINICAL DATES: 9 weeks 2 days. LIMITATIONS: None. FINDINGS: FETUS: Single Living intrauterine . ULTRASOUND EGA: 9 weeks 3 days. ULTRASOUND ALEXUS: 09/15/2019 EFW: Not applicable less than 20 weeks. CRL: 2.7 cm. FHR: 187 beats per minute. SURVEY: Too early to assess. AMNIOTIC FLUID: Adequate amount. PLACENTA: Not yet developed due to early gestation. SUBCHORIONIC BLEED: No. SIZE OF BLEED: Not applicable. UTERUS: No masses. No anomalies. CERVICAL LENGTH: 2.5 cm. Closed. RIGHT ADNEXA: Normal ovary with normal vascular flow. No adnexal free fluid. No adnexal masses. LEFT ADNEXA: Ovary not identified due to poor acoustical window. No adnexal free fluid. No adnexal masses. FREE FLUID: None. OTHER: No other significant finding. IMPRESSION: LIVING INTRAUTERINE . EGA 9 WEEKS 3 DAYS. Trimester of : First trimester - 0 to 13 weeks. TECHNICAL DOCUMENTATION: JOB ID: [id number]- All Rights Reserved rev-11/03 Reading location - IP/workstation name: [email or web address]
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
--- NOTE | 2019-02-13 13:09 | EKG REPORT ---
SEVERITY:- ABNORMAL ECG - SINUS RHYTHM BORDERLINE RIGHT AXIS DEVIATION PROLONGED QT INTERVAL : Confirmed by: Bruce Thompson MD 13-Feb-2019 13:08:55
[2019-02-13 13:44] VITALS: BP 115/62
== END 2019-02-13 13:48 | disposition home or self-care (01) ==
LOC: ER 05:02
PROC: 0HQ0XZZ Repair Scalp Skin, External Approach (ICD-10-PCS; principal; 2019-02-13)
PROC: 0HQEXZZ Repair Left Lower Arm Skin, External Approach (ICD-10-PCS; 2019-02-13)
DX: R41.82 Altered mental status, unspecified (principal); F19.10 Other psychoactive substance abuse, uncomplicated; F29 Unspecified psychosis not due to a substance or known physiological condition; F14.10 Cocaine abuse, uncomplicated; F17.200 Nicotine dependence, unspecified, uncomplicated; S01.81XA Laceration without foreign body of other part of head, initial encounter; W22.8XXA Striking against or struck by other objects, initial encounter; S61.512A Laceration without foreign body of left wrist, initial encounter
CPT/HCPCS: 93005; 99285; 96372; 96361; 96374; 96375; 36415; 80307 ×5; 84702; 83735; 85025; 81025; 80053; 81001; 76801; 70450; 93010; 12002; G0480; J3490 ×2; J2060; J3486; J7030

== ENCOUNTER 2019-02-26 11:14 | Emergency (ER) | payer MEDICAID, OTHER ==
[2019-02-26 12:42] VITALS: BP 103/58
--- NOTE | 2019-02-26 12:46 | ER Document Report ---
HPI - HPI Patient complains to provider of: suture removal Time Seen by Provider: 02/26/19 12:40 Onset: Other - 02/11 Pain Level: Denies Context: 28-year-old female presents emergency department with request for suture remover to her forehead and left forearm. Patient reports she was supposed to return after 5 days but she did not have a ride here. Denies fever vomiting diarrhea. Reports the sites feel little itchy. Associated Symptoms: None Exacerbated by: Denies Relieved by: Denies Similar symptoms previously: Yes Recently seen / treated by doctor: Yes - REPRODUCTIVE Reproductive: DENIES: : Past Medical History - General Information source: Patient Last Menstrual Period: approximately 10 weeks - Social History Smoking Status: Unknown if Ever Smoked Cigarette use (# per day): No Frequency of alcohol use: None Drug Abuse: None Family History: Reviewed & Not Pertinent Patient has suicidal ideation: No Patient has homicidal ideation: No Renal/ Medical History: Denies: Hx Peritoneal Dialysis Psychiatric Medical History: Reports: Hx Anxiety, Hx Attention Deficit Hyperactivity Disorder, Hx Bipolar Disorder, Hx Depression - &anxiety, Hx Personality Disorder Surgical Hx: Negative - Immunizations Hx Diphtheria, Pertussis, Tetanus Vaccination: Yes Vertical Provider Document - CONSTITUTIONAL Agree With Documented VS: Yes Exam Limitations: No Limitations General Appearance: WD/WN, No Apparent Distress - INFECTION CONTROL TRAVEL OUTSIDE OF THE [place] IN LAST 30 DAYS: No - HEENT HEENT: Atraumatic, Normocephalic - NECK Neck: Supple - RESPIRATORY Respiratory: No Respiratory Distress - CARDIOVASCULAR Cardiovascular: Regular Rate - MUSCULOSKELETAL/EXTREMETIES Musculoskeletal/Extremeties: MAEW, FROM, Non-Tender - NEURO Level of Consciousness: Awake, Alert, Appropriate Motor/Sensory: No Motor Deficit - DERM Integumentary: Warm, Dry Adult Front & Back Diagram: 1 - 8 sutures vertical intact no signs and symptoms of infection no erythema no swelling no warmth no discharge 2 - 4 sutures intact no erythema no warmth no swelling no discharge Course - Re-evaluation Re-evalutation: 02/26/19 12:49 28-year-old female presents for suture removal. Sutures placed February 11. Patient reports she was told to come back after 5 days for suture removal but did not have a ride sites look benign. Patient was instructed on skin protection sunblock to minimize scarring. She verbalized understanding. She was also instructed to monitor the site for signs of infection. Dictation of this chart was performed using voice recognition software; therefore, there may be some unintended grammatical errors. - Vital Signs Vital signs: Temp Pulse Resp BP Pulse Ox 98.3 F 70 16 103/58 L 100 02/26/19 12:40 02/26/19 12:40 02/26/19 12:40 02/26/19 12:40 02/26/19 12:40 Discharge - Discharge Clinical Impression: Encounter for removal of sutures Condition: Stable Disposition: HOME, SELF-CARE Instructions: Suture Removal Additional Instructions: *You have been treated for suture removal *Monitor the site for signs of infection such as pain, redness, swelling, warmth *Use sunblock as discussed *Follow up with a primary care provider within 1 week for recheck *Return to ED for signs of infection, worsening condition, changes, needs
== END 2019-02-26 13:08 | disposition home or self-care (01) ==
LOC: ER 11:14
DX: Z48.02 Encounter for removal of sutures (principal); L29.9 Pruritus, unspecified

== ENCOUNTER 2019-04-17 10:19 | Inpatient (IN) | payer MEDICAID ==
[2019-04-17] MEDS ORDERED: RINGERS SOLUTION,LACTATED 300 ML IV ONE (10:40)
[2019-04-17] MEDS ORDERED: IBUPROFEN 800 MG TABLET PO SCH (11:00)
[2019-04-17 11:24] LABS: URINE BARBITURATES SCREEN NEGATIVE; URINE BENZODIAZEPINES SCREEN NEGATIVE; URINE COCAINE SCREEN NEGATIVE; URINE METHADONE SCREEN NEGATIVE; URINE PHENCYCLIDINE SCREEN NEGATIVE
[2019-04-17 11:28] LABS: URINE AMPHETAMINES SCREEN UNCONFIRMED POSITIVE; URINE MARIJUANA (THC) SCREEN UNCONFIRMED POSITIVE
[2019-04-17] MEDS: MISOPROSTOL 0.2 MG TABLET PO SCH ×4 (11:57→19:32)
[2019-04-17] MEDS: RINGERS SOLUTION,LACTATED 1,000 ML IV PRN ×2 (11:57→18:58)
[2019-04-17 12:01] LABS: HEMATOCRIT 29.6 % (36.0-47.0); HEMOGLOBIN 10.3 g/dL (12.0-15.5); MEAN CORPUSCULAR HGB CONC 34.6 g/dL (32.0-36.0); MEAN CORPUSCULAR VOLUME 90 fl (80-97); PLATELET COUNT 225 10^3/uL (150-450); RED BLOOD COUNT 3.31 10^6/uL (3.72-5.28); RED CELL DISTRIBUTION WIDTH 12.7 % (11.5-14.0); WHITE BLOOD COUNT 9.4 10^3/uL (4.0-10.5)
[2019-04-17] MEDS ORDERED: IBUPROFEN 800 MG TABLET PO PRN (12:02)
--- NOTE | 2019-04-17 12:55 | RADIOLOGY REPORT (SQ) ---
EXAM DESCRIPTION: U/S OB LIMITED COMPLETED DATE/TIME: 04/17/2019 11:38 am REASON FOR STUDY: confirmation of demise-check heart activity COMPARISON: 02/13/2019 TECHNIQUE: Limited transabdominal grayscale ultrasound for evaluation of specific requested obstetri flor parameters. LIMITATIONS: None. FINDINGS: ALEXUS: 10/02/2019 EGA: 16 weeks 0 days FHR: heart tones were not identified utilizing B-mode, color Doppler and cine evaluation. PLACENTA: Not assessed ANATOMY: Not assessed OTHER: No other significant findings. IMPRESSION: Limited sonographic evaluation demonstrates intrauterine with estimated gestat ional age of 16 weeks 0 days. heart tones were not identified compatible with demise. TECHNICAL DOCUMENTATION: JOB ID: [id number] [employer]- All Rights Reserved Reading location - IP/workstation name: [email or web address]
--- NOTE | 2019-04-17 19:22 | PDOC H&P ---
History of Present Illness Admission Date/PCP: 04/17/19 10:40 LEON BERTRAND CNM Patient complains of: demise in utero for IOL History of Present Illness: STEPHANIE SPENCER is a 28 year old female at approx 16 wks and seen by [facility] where she was seen two days ago and noted to have no FHT. US done and verified this . She was referred to [facility] for further mgt and US there confirmed no heart tones per patient. Report not available to me for these US. She is feeling fine but sad. She has hx of two and two children at home. SHe is substance dependent on Subutex 16 mg daily from outside provider. NO vaginal bleeding or pain presently Past Medical History Gynecological Infection: No Gynecological History Note: Denies hx of abnormal PAP or STI Obstetrical History: none Psychiatric Medical History: Reports: Attention Deficit Hyperactivity Disorder, Bipolar Disorder, Personality Disorder Denies: Depression Social History Smoking Status: Current Every Day Smoker Cigarettes Packs Per Day: 0.5 Number of Years Smokin Frequency of Alcohol Use: Social Hx Recreational Drug Use: Yes - Reports hx of ilicit drug use but currently on SUbutex 16 mg daily Drugs: Other Hx Prescription Drug Abuse: Yes Family History Family History: Reviewed & Not Pertinent Parental Family History Reviewed: Yes - Negative Children Family History Reviewed: Yes Sibling(s) Family History Reviewed.: NA Medication/Allergy Home Medications: Ibuprofen [Motrin 800 mg Tablet] 800 mg PO Q8 #60 tablet 01/21/18 Vit/Dha [ Multi + Dha Capsule] 1 cap PO DAILY capsule 01/21/18 Cephalexin Monohydrate [Keflex 500 mg Capsule] 500 mg PO BID 5 Days capsule 02/11/19 Metronidazole [Flagyl 500 mg Tablet] 500 mg PO BID #14 tablet 02/11/19 Pnv No.95/Ferrous Fum/Folic AC [ Formula] 1 each PO DAILY #30 tablet 02/11/19 Promethazine HCl [Phenergan 25 mg Tablet] 25 mg PO Q6H PRN #8 tablet 02/11/19 Allergies/Adverse Reactions: No Known Allergies Allergy (Verified 02/13/19 07:11) Review of Systems Constitutional: PRESENT: as per HPI Cardiovascular: PRESENT: as per HPI - No headache, fever, chills, Chest pain, Shortness of breath, racing heart, abdominal pain, diarrhea, constiption,dysuria, hematuria, vaginal discharge, pain Respiratory: PRESENT: as per HPI Gastrointestinal: PRESENT: as per HPI Neurological: PRESENT: as per HPI Physical Exam - Physical Exam Vital Signs: Temp Pulse Resp BP Pulse Ox 97.8 F 56 L 15 92/47 L 97 04/17/19 15:48 04/17/19 15:48 04/17/19 15:48 04/17/19 15:48 04/17/19 15:48 Intake & Output 04/16/19 04/17/19 04/18/19 06:59 06:59 06:59 Intake Total 1557 Output Total 500 Balance 1057 Weight 53.88 kg General appearance: PRESENT: no acute distress, cooperative Respiratory exam: PRESENT: clear to auscultation kong Cardiovascular exam: PRESENT: RRR, +S1, +S2 GI/Abdominal exam: PRESENT: normal bowel sounds, soft Musculoskeletal exam: PRESENT: normal inspection Neurological exam: PRESENT: alert, awake, reflexes normal Psychiatric exam: PRESENT: appropriate affect Skin exam: PRESENT: dry, intact, warm - Gynecological Exam Labia: normal Introitus: normal Cervix: normal Uterus: other - Approx 15 wks Size Adhexa: normal Result Laboratory Results: 04/17/19 11:44 04/17/19 04/17/19 11:44 11:44 WBC 9.4 RBC 3.31 L Hgb 10.3 L Hct 29.6 L MCV 90 MCH 31.0 MCHC 34.6 RDW 12.7 Plt Count 225 Blood Type A POSITIVE Antibody Screen NEGATIVE Impressions: Obstetrics Ultrasound 04/17/19 00:00 IMPRESSION: Limited sonographic evaluation demonstrates intrauterine with estimated gestational age of 16 weeks 0 days. heart tones were not identified compatible with demise. Assessment & Plan - Diagnosis (1) demise before 20 weeks with retention of fetus Is this a current diagnosis for this admission?: Yes Plan: VS Q 4 hrs Clear liquid diet IV access CBC, Type and screen Obtain US confirmation of demise Cytotec 400mcg Q 4 hrs until delivery Pain management with PRNs Anticipate of demise (2) Drug use affecting Qualifiers: Trimester: first trimester Qualified Code(s): O99.321 - Drug use complicating , first trimester Is this a current diagnosis for this admission?: Yes Plan: Continue subutex 16 mg PO daily - Time Time Spent: 30 to 50 Minutes Smoking Cessation Education: 3 to 10 minutes Medications reviewed and adjusted accordingly: Yes Within: within 48 hours Disposition: Stable
--- NOTE | 2019-04-17 19:29 | PDOC PROGRESS REPORT ---
Subjective Progress Note for:: 04/17/19 Subjective:: Called to patients room. She was up to have a bowel movement and passed fetus. Cord intact and fetus is at the introitus. Helped patient back to bed supporting the demised . Once there, cord was cut. No bleeding. Placenta in place but fullness felt against cervix. fundus massaged. WIll continue Cytotec until delivery. Advised to call out with bleeding or pressure/pain. Counseled at the bedside. Reason For Visit: INTRAUTERINE DEMISE Physical Exam - Physical Exam Vital Signs: Temp Pulse Resp BP Pulse Ox 97.8 F 56 L 15 92/47 L 97 04/17/19 15:48 04/17/19 15:48 04/17/19 15:48 04/17/19 15:48 04/17/19 15:48 Intake & Output 04/16/19 04/17/19 04/18/19 06:59 06:59 06:59 Intake Total 1557 Output Total 500 Balance 1057 Weight 53.88 kg General appearance: PRESENT: no acute distress GI/Abdominal exam: PRESENT: soft - Fundus firm and 2 cm above pubic bone Psychiatric exam: PRESENT: appropriate affect, other - Tearful Skin exam: PRESENT: dry, warm - Gynecological Exam Labia: normal Introitus: normal Cervix: normal Uterus: other - Approx 15 wks Size Adhexa: normal Result Laboratory Results: 04/17/19 11:44 04/17/19 04/17/19 11:44 11:44 WBC 9.4 RBC 3.31 L Hgb 10.3 L Hct 29.6 L MCV 90 MCH 31.0 MCHC 34.6 RDW 12.7 Plt Count 225 Blood Type A POSITIVE Antibody Screen NEGATIVE Impressions: Obstetrics Ultrasound 04/17/19 00:00 IMPRESSION: Limited sonographic evaluation demonstrates intrauterine with estimated gestational age of 16 weeks 0 days. heart tones were not identified compatible with demise. Assessment & Plan - Diagnosis (1) demise before 20 weeks with retention of fetus Is this a current diagnosis for this admission?: Yes Plan: Demise delivered intact. Baby with no heart activity as expected. Edematous. Baby with mother and grandmother. EBL 150 cc Will wait for placenta. continue cytotec 4oo mcg until delivery. (2) Drug use affecting Qualifiers: Trimester: first trimester Qualified Code(s): O99.321 - Drug use complicating , first trimester Is this a current diagnosis for this admission?: Yes Plan: Continue subutex 16 mg daily - Time Time Spent with patient: 15-24 minutes Within: within 48 hours
--- NOTE | 2019-04-17 22:17 | PDOC PROGRESS REPORT ---
Subjective Progress Note for:: 04/17/19 Subjective:: Called to patients room-placenta passed. Fundus firm. Examined placenta and appears intact. Light bleeding on pad but no active bleeding presently Discussed care with patient. She may eat. Had asked staff if she could leave. Recommend she stay the night as the placenta has just passed. Would like to monitor for bleeding and fundal checks B/P on low normal. Pulse normal. Will continue vitals overnight with pad checks. Pain medicaiton PRN Plan to check Hgb in am. Pt is agreeable Reason For Visit: INTRAUTERINE DEMISE Physical Exam - Physical Exam Vital Signs: Temp Pulse Resp BP Pulse Ox 97.8 F 62 15 82/47 L 97 04/17/19 15:48 04/17/19 19:23 04/17/19 15:48 04/17/19 19:23 04/17/19 15:48 Intake & Output 04/16/19 04/17/19 04/18/19 06:59 06:59 06:59 Intake Total 1557 Output Total 500 Balance 1057 Weight 53.88 kg - Gynecological Exam Labia: normal Introitus: normal Vagina: normal - small amount blood. No active bleeding Uterus: other - Firm and approx 12 wks Adhexa: normal Result Laboratory Results: 04/17/19 11:44 04/17/19 04/17/19 11:44 11:44 WBC 9.4 RBC 3.31 L Hgb 10.3 L Hct 29.6 L MCV 90 MCH 31.0 MCHC 34.6 RDW 12.7 Plt Count 225 Blood Type A POSITIVE Antibody Screen NEGATIVE Impressions: Obstetrics Ultrasound 04/17/19 00:00 IMPRESSION: Limited sonographic evaluation demonstrates intrauterine with estimated gestational age of 16 weeks 0 days. heart tones were not identified compatible with demise. Assessment & Plan - Diagnosis (1) demise before 20 weeks with retention of fetus Is this a current diagnosis for this admission?: Yes Plan: s/p deliver of demise fetus and placenta. condtiion stable. (2) Drug use affecting Qualifiers: Trimester: first trimester Qualified Code(s): O99.321 - Drug use complicating , first trimester Is this a current diagnosis for this admission?: Yes Plan: continue subutex 16 mg daily . Motrin 800mg PRN - Time Time Spent with patient: Less than 15 minutes Medications reviewed and adjusted accordingly: Yes
[2019-04-18] MEDS: RINGERS SOLUTION,LACTATED 1,000 ML IV PRN ×2 (02:19→05:23)
[2019-04-18 06:44] LABS: ABSOLUTE EOSINOPHILS # (AUTO) 0.3 10^3/uL (0.0-0.6); ABSOLUTE LYMPHOCYTES (AUTO) 2.4 10^3/uL (0.5-4.7); ABSOLUTE MONOCYTES (AUTO) 0.6 10^3/uL (0.1-1.4); ABSOLUTE NEUT (AUTO) 4.8 10^3/uL (1.7-8.2); BASOPHILS % (AUTO) 0.2 % (0-2); EOSINOPHILS % (AUTO) 3.8 % (0-6); HEMATOCRIT 27.4 % (36.0-47.0); HEMOGLOBIN 9.4 g/dL (12.0-15.5); LYMPHOCYTES % (AUTO) 29.7 % (13-45); MEAN CORPUSCULAR HEMOGLOBIN 31.1 pg (27.0-33.4); MEAN CORPUSCULAR HGB CONC 34.4 g/dL (32.0-36.0); MEAN CORPUSCULAR VOLUME 90 fl (80-97); MONOCYTES % (AUTO) 7.2 % (3-13); PLATELET COUNT 188 10^3/uL (150-450); RED BLOOD COUNT 3.04 10^6/uL (3.72-5.28); RED CELL DISTRIBUTION WIDTH 12.8 % (11.5-14.0); SEGMENTED NEUTROPHILS % (AUTO) 59.1 % (42-78); TOTAL CELLS COUNTED % (AUTO) 100 %; WHITE BLOOD COUNT 8.1 10^3/uL (4.0-10.5)
--- NOTE | 2019-04-18 07:02 | Discharge Summary ---
Discharge Summary (SDC) - Discharge Final Diagnosis: Intra uterine demise-s/p vaginal delivery Discharge Date: 04/18/19 Condition: Stable Treatment or Instructions: Continue vitamin and Iron daily . Return to OB provider in 2 wks Prescriptions: Ibuprofen [Motrin 800 mg Tablet] 800 mg PO Q8HP 30 Days #30 tablet Referrals: LEON BERTRAND CNM [Primary Care Provider] - Discharge Diet: As Tolerated, Regular Respiratory Treatments at Home: Deep Breathing/Coughing Discharge Activity: Activity As Tolerated Report the Following to Your Physician Immediately: Shortness of Breath, Nausea, Vomiting, Drainage-Foul Smelling, Increased Vaginal Bleed, Large Clots
[2019-04-18] MEDS ORDERED: INFLUENZA QUAD (6MOS+) 2019-20 VAC 0.5 ML SYR IM ONE (09:17)
[2019-04-18 09:19] VITALS: BP 85/41
[2019-04-23 07:05] LABS: AMPHETAMINE CONFIRMATION UR Positive (.); CANNABINOID CONFIRMATION UR Positive (.)
== END 2019-04-18 09:51 | disposition home or self-care (01) | DRG 779 ==
LOC: 2N 10:19 → OBSVTOIN 10:40
PROVIDERS: ADMIT Obstetrics & Gynecology Gynecology; ATTEND Obstetrics & Gynecology Gynecology
DX: O02.1 Missed abortion (principal); O99.322 Drug use complicating pregnancy, second trimester; F11.10 Opioid abuse, uncomplicated; O99.332 Smoking (tobacco) complicating pregnancy, second trimester; F17.210 Nicotine dependence, cigarettes, uncomplicated; O99.342 Other mental disorders complicating pregnancy, second trimester; F90.9 Attention-deficit hyperactivity disorder, unspecified type; F31.9 Bipolar disorder, unspecified; Z3A.16 16 weeks gestation of pregnancy
CPT/HCPCS: 36415; 76815; 80307; 80349; 85025; 85027; 86850; 86900; 86901; 88307; 90686; G0480; J7120

== ENCOUNTER 2019-06-04 01:18 | Emergency (ER) | payer MEDICAID ==
[2019-06-04] MEDS ORDERED: ZIPRASIDONE MESYLATE INJ/PF 20 MG SDV IM ONE (01:20)
[2019-06-04] MEDS ORDERED: NORMAL SALINE 1000 ML 1,000 ML IV ONE (01:47)
--- NOTE | 2019-06-04 01:49 | ER Document Report ---
ED General - General Stated Complaint: INTOXICATED Time Seen by Provider: 06/04/19 01:38 Primary Care Provider: LEON BERTRAND CNM [Primary Care Provider] - Follow up as needed TRAVEL OUTSIDE OF THE [place] IN LAST 30 DAYS: No - HPI Notes: Patient is a 28-year-old female, brought into the emergency department for evaluation by [place] [employer]. I did review this patient's medical history. Evidently she does have a history of schizophrenia and some drug abuse. Per police, she was acting erratically, yelling at the grocery store here in town. She was arrested for intoxication, brought to the police department, but she continued to act erratically, yell out. She was continually yelling about how she was going to , however her rights were being "alienated" and how she needed to get out of the state. She continued to yell about this here. The patient will not offer me any significant or meaningful history. She is currently psychotic, yelling out. She was medicated with IM G eodon. - Related Data Allergies/Adverse Reactions: No Known Allergies Allergy (Verified 02/13/19 07:11) Past Medical History - General Information source: [facility] Records - Social History Smoking Status: Smoker,Current Status Unk Drug Abuse: Heroin, Methamphetamine Family History: Reviewed & Not Pertinent Renal/ Medical History: Denies: Hx Peritoneal Dialysis Psychiatric Medical History: Reports: Hx Anxiety, Hx Attention Deficit Hyperactivity Disorder, Hx Bipolar Disorder, Hx Personality Disorder, Hx Schizophrenia Denies: Hx Depression - Immunizations Hx Diphtheria, Pertussis, Tetanus Vaccination: Yes Review of Systems - Review of Systems -: Yes ROS unobtainable due to patient's medical condition Physical Exam - Vital signs Vitals: Temp Pulse Resp BP Pulse Ox 98.7 F 137 H 20 183/117 H 96 06/04/19 01:37 06/04/19 01:37 06/04/19 01:37 06/04/19 01:37 06/04/19 01:37 - Notes Notes: This is a 28-year-old female who appears her stated age, moderately distressed. She is yelling out, stating she is going to , stating that she is going to be killed. She states that she has a right to "water before I ." She will not offer me any more meaningful history, nor will she directly answer any further o f my questions. Head is normocephalic and atraumatic, pupils are equal round, reactive to light. Oral mucosa is moist. She has markedly dry skin at her lips. Heart is mildly tachycardic with normal S1-S2. Lungs are clear to auscultation bilaterally. Abdomen soft, nontender, normoactive bowel sounds. Skin is warm, diaphoretic. She has some ecchymosis noted to bilateral forearms. She has no gross facial asymmetry. She moves all 4 extremities spontaneously. Patient is extremely paranoid, exhibiting significant psychosis. Course - Re-evaluation Re-evalutation: 06/04/19 01:45 Patient presents to the emergency department for evaluation. This patient is clearly psychotic. Because of her agitation, I am concerned she has a significant danger to herself at this time. She will not answer any questions directly. She was placed in restraints for her own safety, administer Geodon 20 mg IM. IVC paperwork in order. Awaiting laboratory investigations. 06/04/19 02:58 Patient was out of restraints shortly after being medicated. She is calm and cooperative. Her vital signs improved markedly without any sort of inte rvention. At this point, awaiting laboratory investigations, but I do suspect this is all secondary to her schizophrenia and likely substance abuse. Labs pending, but expect the patient will be medically cleared. Her blood is pending at this time. Her IVC orders were placed by the police. 06/04/19 03:07 Patient is more forthcoming with her history at this time. She admits to smoking meth earlier. She remembers the entire incident. She states she is not taking any psychiatric medications at this time. - Vital Signs Vital signs: Temp Pulse Resp BP Pulse Ox 98.7 F 137 H 20 183/117 H 96 06/04/19 02:31 06/04/19 02:31 06/04/19 02:31 06/04/19 02:31 06/04/19 02:31 - Laboratory Result Diagrams: 06/04/19 02:50 06/04/19 02:50 - EKG Interpretation by Me Additional EKG results interpreted by me: 06/04/19 03:00 Sinus mechanism with a rate of 84 bpm. Borderline right axis deviation. Normal intervals. No acute ST changes concerning for ischemia or infarction. No significant change compared to prior study. Discharge - Discharge Clinical Impression: Acute psychosis Schizophrenia Qualifiers: Schizophrenia type: unspecified Qualified Code(s): F20.9 - Schizophrenia, unspecified Condition: Stable Disposition: OTHER Referrals: LEON BERTRAND CNM [Primary Care Provider] - Follow up as needed
[2019-06-04 03:09] LABS: ABSOLUTE LYMPHOCYTES (AUTO) 0.9 10^3/uL (0.5-4.7); ABSOLUTE MONOCYTES (AUTO) 1.7 10^3/uL (0.1-1.4); ABSOLUTE NEUT (AUTO) 12.8 10^3/uL (1.7-8.2); BASOPHILS % (AUTO) 0.1 % (0-2); HEMATOCRIT 35.4 % (36.0-47.0); LYMPHOCYTES % (AUTO) 5.8 % (13-45); MEAN CORPUSCULAR HEMOGLOBIN 30.5 pg (27.0-33.4); MEAN CORPUSCULAR HGB CONC 33.9 g/dL (32.0-36.0); MEAN CORPUSCULAR VOLUME 90 fl (80-97); MONOCYTES % (AUTO) 10.8 % (3-13); PLATELET COUNT 188 10^3/uL (150-450); RED BLOOD COUNT 3.93 10^6/uL (3.72-5.28); RED CELL DISTRIBUTION WIDTH 12.9 % (11.5-14.0); SEGMENTED NEUTROPHILS % (AUTO) 83.3 % (42-78); TOTAL CELLS COUNTED % (AUTO) 100 %; WHITE BLOOD COUNT 15.4 10^3/uL (4.0-10.5)
[2019-06-04 03:29] LABS: ALBUMIN 4.4 g/dL (3.5-5.0); ALKALINE PHOSPHATASE 54 U/L (38-126); ANION GAP 14 (5-19); ASPARTATE AMINO TRANSFERASE 61 U/L (14-36); BILIRUBIN,DIRECT 0.1 mg/dL (0.0-0.4); BILIRUBIN,TOTAL 0.8 mg/dL (0.2-1.3); BLOOD UREA NITROGEN 19 mg/dL (7-20); CALCIUM 9.7 mg/dL (8.4-10.2); CARBON DIOXIDE 24 mmol/L (22-30); CHLORIDE 102 mmol/L (98-107); GLUCOSE 88 mg/dL (75-110); POTASSIUM 3.5 mmol/L (3.6-5.0); TOTAL PROTEIN 7.6 g/dL (6.3-8.2)
[2019-06-04 03:38] LABS: ACETAMINOPHEN < 10 ug/mL (10-30); ALCOHOL < 10 mg/dL (NONE DETECTED); SALICYLATE < 1.0 mg/dL (2.0-20.0)
[2019-06-04 06:08] LABS: APPEARANCE,URINE CLOUDY; BILIRUBIN,URINE NEGATIVE (NEGATIVE); COLOR,URINE YELLOW; GLUCOSE, URINE NEGATIVE (NEGATIVE); KETONES,URINE TRACE mg/dL (NEGATIVE); LEUKOCYTE ESTERASE,URINE TRACE (NEGATIVE); NITRITE,URINE NEGATIVE (NEGATIVE); PROTEIN,URINE 100 mg/dL (NEGATIVE); UROBILINOGEN,URINE NEGATIVE mg/dL (<2.0)
[2019-06-04 06:19] LABS: URINE BARBITURATES SCREEN NEGATIVE; URINE BENZODIAZEPINES SCREEN NEGATIVE; URINE MARIJUANA (THC) SCREEN NEGATIVE; URINE METHADONE SCREEN NEGATIVE; URINE PHENCYCLIDINE SCREEN NEGATIVE
[2019-06-04 06:48] LABS: URINE COCAINE SCREEN UNCONFIRMED POSITIVE
[2019-06-04] MEDS ORDERED: CEPHALEXIN 500 MG CAPSULE PO SCH (07:00)
[2019-06-04 09:05] VITALS: BP 108/55
--- NOTE | 2019-06-04 16:28 | PSYCHOLOGICAL NOTE ---
Psych Note - Psych Note Date seen by psych provider: 06/04/19 Time seen by psych provider: 08:15 Psych Note: Patient stated she "partied on drugs last night because I have court this morning." Patient verbalized a desire to abstain from further drug use. Patient expressed disappointment at her behavior behavior and current life circumstances. Patient described her mindset last night as "out of reality." Patient expressed concern she would be incarcerated. Patient requested discharge because she has court at 09:00. Patient was calm and cooperative. Impression/Plan: Patient is cleared from acute psychiatric services. Patient does not meet IVC criteria per [place] GS 122C. It is recommended that IVC be rescinded. Patient was provided with outpatient mental health resource list. Patient was provided with substance abuse treatment list. Dr. Goodman was consulted on the care and management of this patient; attending physician is in agreement with recommendations and disposition.
--- NOTE | 2019-06-04 22:40 | EKG REPORT ---
SEVERITY:- OTHERWISE NORMAL ECG - SINUS RHYTHM BORDERLINE RIGHT AXIS DEVIATION : Confirmed by: Sweetie Brewer 04-Jun-2019 22:38:52
== END 2019-06-04 09:12 | disposition home or self-care (01) ==
LOC: ER 01:18
DX: F23 Brief psychotic disorder (principal); F20.9 Schizophrenia, unspecified; F17.200 Nicotine dependence, unspecified, uncomplicated
CPT/HCPCS: 93005; 36415; 80307 ×4; 84703; 85025; 80053; 81001; 93010; J3486; J7030; 87086; 96360; 96372; 99285